=== PATIENT | male | born 1980 | race African-American/Black ===

== ENCOUNTER 2016-12-17 16:03 | Inpatient (IN) | payer OTHER ==
[~2016-12-17] VITALS: Ht 188 cm; Wt 59.9 kg
[2016-12-17] MEDS ORDERED: MORPHINE SULFATE 8 MG/ML INJ ONE (16:07)
[2016-12-17] MEDS ORDERED: ONDANSETRON HCL 4 MG/2 ML VIAL ONE (16:10)
[2016-12-17 16:20] VITALS: O2SAT 100
[2016-12-17] MEDS ORDERED: IOHEXOL 350 MG/ML 10 ML VIAL (for RAD DIAG) IV ONE (16:20)
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
[2016-12-17 16:30] LABS: AUTOMATED NEUTROPHIL # 7.2 TH/MM3 (1.8-7.7); BASOPHIL # 0.1 TH/MM3 (0-0.2); BASOPHIL % 0.8 % (0.0-2.0); EOSINOPHIL # 0.1 TH/MM3 (0-0.4); EOSINOPHIL % 0.6 % (0.0-4.0); HEMATOCRIT 41.9 % (39.0-51.0); HEMO FLAGS DIFF FINAL; LYMPH % 26.1 % (9.0-44.0); LYMPHOCYTE # 2.9 TH/MM3 (1.0-4.8); MEAN CORPUSCULAR HEMOGLOBIN 30.9 PG (27.0-34.0); MEAN CORPUSCULAR HGB CONC 33.6 % (32.0-36.0); NEUT % 64.5 % (16.0-70.0); PLATELET COUNT 232 TH/MM3 (150-450); RED BLOOD COUNT 4.55 MIL/MM3 (4.50-5.90); RED CELL DISTRIBUTION WIDTH 13.2 % (11.6-17.2); WHITE BLOOD COUNT 11.2 TH/MM3 (4.0-11.0)
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
[2016-12-17 16:35] LABS: I-STAT POTASSIUM 3.5 MMOL/L (3.5-4.9)
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
[2016-12-17 16:40] LABS: PROTHROMBIN TIME - PATIENT 10.7 SEC (9.8-11.6)
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
[2016-12-17] MEDS ORDERED: SODIUM CHLORIDE 0.9% FLUSH 5 ML FLUSH IVF PRN (17:00)
[2016-12-17] MEDS ORDERED: HYDROmorphone HCL PF 1 MG/ML VIAL IV PRN (17:00)
[2016-12-17] MEDS ORDERED: Post-op Orders (for Pharmacy) MISC XX ONE (17:00)
[2016-12-17] MEDS ORDERED: MORPHINE SULFATE 4 MG/ML INJ IV PRN (17:00)
[2016-12-17] MEDS ORDERED: ONDANSETRON HCL 4 MG/2 ML VIAL IV PRN (17:00)
[2016-12-17] MEDS ORDERED: NALOXONE HCL 0.4 MG/ML AMP IV PRN (17:00)
[2016-12-17] MEDS ORDERED: oxyCODONE/ACETAMINOPHEN 5 MG/325 MG TAB PO PRN (17:00)
[2016-12-17 17:46] VITALS: RESP 16; O2SAT 97
[2016-12-17 18:04] VITALS: BP 139/76; PULSE 68; RESP 18; O2SAT 100
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
[2016-12-17] MEDS: DOCUSATE SODIUM 100 MG CAP PO SCH (21:00)
[2016-12-17] MEDS ORDERED: SODIUM CHLORIDE 0.9% FLUSH 5 ML FLUSH IVF SCH (21:00)
[2016-12-17] MEDS: PANTOPRAZOLE SOD 40 MG DELAYED RELEASE TAB PO SCH (21:20)
[2016-12-18 00:30] VITALS: BP 134/64; PULSE 68; RESP 16; O2SAT 99
[2016-12-18 05:00] VITALS: BP 128/72; PULSE 62; RESP 16; O2SAT 98
[2016-12-18] MEDS ORDERED: ceFAZolin INJ 1,000 MG VIAL ONE (06:15)
[2016-12-18] MEDS ORDERED: VANCOMYCIN HCL 1000 MG VIAL ONE (06:15)
[2016-12-18] MEDS ORDERED: GENTAMICIN SULFATE 80 MG/2 ML VIAL ONE (06:15)
[2016-12-18] MEDS ORDERED: ACETAMINOPHEN 1000 MG/100 ML VIAL IV ONE (06:49)
[2016-12-18] MEDS ORDERED: FAMOTIDINE 20 MG/2 ML VIAL ONE (06:49)
[2016-12-18] MEDS ORDERED: MIDAZOLAM HCL 2 MG/2 ML VIAL ONE (06:49)
[2016-12-18] MEDS ORDERED: LACTATED RINGER'S 1000 ML INJ 1,000 ML IV SCH (07:53)
[2016-12-18] MEDS ORDERED: MORPHINE SULFATE 4 MG/ML INJ IV PUSH PRN (08:00)
[2016-12-18] MEDS ORDERED: SODIUM CHLORIDE 0.9% FLUSH 5 ML FLUSH IVF PRN (08:00)
[2016-12-18] MEDS ORDERED: diphenhydrAMINE HCL 25 MG CAP PO PRN (08:00)
[2016-12-18] MEDS ORDERED: Post-op Orders (for Pharmacy) MISC XX ONE (08:00)
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
[2016-12-18] MEDS ORDERED: fentaNYL CITRATE 250 MCG/5 ML AMP ONE (08:13)
[2016-12-18] MEDS ORDERED: *morphine SULFATE 8 MG/ML PERIprocedure ONLY ONE ×2 (08:15→08:20)
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
[2016-12-18] MEDS ORDERED: MORPHINE SULFATE 8 MG/ML INJ ONE (08:31)
[2016-12-18] MEDS ORDERED: *HYDROmorphone PF 1 MG VIAL PERIprocedural Use ONLY ONE ×2 (08:54→09:08)
[2016-12-18] MEDS: SODIUM CHLORIDE 0.9% FLUSH 5 ML FLUSH IVF SCH ×2 (09:00→23:38)
[2016-12-18] MEDS: DOCUSATE SODIUM 100 MG CAP PO SCH ×2 (09:00→21:00)
[2016-12-18] MEDS ORDERED: *PROMETHAZINE 25 MG/ML VIAL PERIprocedural use ONLY ONE (09:08)
[2016-12-18] MEDS ORDERED: *diphenhydrAMINE HCL 50 MG/ML VIAL PERIprocedural Use ONLY ONE ×2 (09:14→10:19)
[2016-12-18] MEDS ORDERED: LORazepam 2 MG/ML VIAL ONE (10:46)
[2016-12-18] MEDS ORDERED: LORazepam 2 MG/ML VIAL IV PRN (12:00)
[2016-12-18] MEDS ORDERED: PROPOFOL 200 MG/20 ML AMP IV ONE (12:00)
[2016-12-18] MEDS ORDERED: ONDANSETRON HCL 4 MG/2 ML VIAL IV PUSH ONE (12:00)
[2016-12-18] MEDS ORDERED: LORazepam 2 MG/ML VIAL IV ONE (12:00)
[2016-12-18] MEDS ORDERED: KETOROLAC TROMETHAMINE 60 MG/2 ML (IM) VIAL IM ONE (12:00)
[2016-12-18] MEDS ORDERED: LACTATED RINGER'S 1000 ML INJ 1,000 ML IV ONE (12:00)
--- NOTE | 2016-12-18 13:44 | RADRPT ---
EXAM DATE/TIME: 12/17/2016 16:24 [facility] COMPARISON: No previous studies available for comparison. INDICATIONS : Evalute right hip fracture ; Reconstructed from previous dataset MEDICAL HISTORY : Non-responsive. SURGICAL HISTORY : Non-responsive. ENCOUNTER: Initial ACUITY: 1 day PAIN SCALE: Non-responsive LOCATION: Right hip TECHNIQUE: 3D reconstructions of the right hip were performed. FINDINGS: 3-D images confirm a comminuted fracture of the posterior aspect of the acetabulum. No dislocation. CONCLUSION: 1. Acetabular fracture as above. Javier Bruno MD on December 18, 2016 at 13:41 Board Certified Radiologist. This report was verified electronically.
--- NOTE | 2016-12-18 13:56 | RADRPT ---
EXAM DATE/TIME: 12/17/2016 16:24 [facility] COMPARISON: No previous studies available for comparison. INDICATIONS : Evaluate fracture. RADIATION DOSE: CTDIvol (mGy) ; Reconstructed from previous dataset MEDICAL HISTORY : Unable to obtain SURGICAL HISTORY : Unable to obtain ENCOUNTER: Initial ACUITY: 1 day PAIN SCALE: Non-responsive LOCATION: Right Hip TECHNIQUE: Volumetric scanning of the hip was performed. Using automated exposure control and adjustment of the mA and/or kV according to patient size, radiation dose was kept as low as reasonably achievable to o btain optimal diagnostic quality images. FINDINGS: There is a comminuted mildly displaced fracture along the entire bony posterior lip of the acetabulum extending to the superior aspect of the femoral head. There is no associated dislocation. No fractur e of the proximal femur is identified. CONCLUSION: 1. Comminuted fracture through the posterior bony margin of the acetabulum as above. Javier Bruno MD on December 18, 2016 at 13:52 Board Certified Radiologist. This report was verified electronically.
--- NOTE | 2016-12-18 14:19 | RADRPT ---
EXAM DATE/TIME: 12/18/2016 13:54 [facility] COMPARISON: No previous studies available for comparison. INDICATIONS : Trauma; jumped out of second story window. RADIATION DOSE: 7.41 CTDIvol (mGy) MEDICAL HISTORY : None SURGICAL HISTORY : None. ENCOUNTER: Initial ACUITY: 1 day PAIN SCALE: Non-responsive LOCATION: Left ankle TECHNIQUE: Volumetric scanning of the ankle was performed. Using automated exposure control and adjustment of t he mA and/or kV according to patient size, radiation dose was kept as low as reasonably achievable to obtain optimal diagnostic quality images. FINDINGS: There is a comminuted fracture of the tibial plafond with some fracture fragments at the articular calderon rface displaced cephalad by about 7 mm. Fracture extends both medially and laterally through the plaf ond and into the posterior aspect of the medial malleolus. There is also a small avulsion fracture of the lateral malleolus and small avulsion fractures of the posterior talus. External fixation is pres ent with fixation screw traversing the posterior calcaneus. Midfoot appears intact. CONCLUSION: 1. Comminuted fracture tibial plafond as above with avulsion fractures of the posterior talus and lat eral malleolus as well. Javier Bruno MD on December 18, 2016 at 14:13 Board Certified Radiologist. This report was verified electronically.
--- NOTE | 2016-12-18 14:25 | RADRPT ---
EXAM DATE/TIME: 12/18/2016 07:49 [facility] COMPARISON: ANKLE LEFT LIMITED (AP&LAT), December 17, 2016, 0:00. INDICATIONS : external fixator left ankle. MEDICAL HISTORY : None. SURGICAL HISTORY : None. ENCOUNTER: Subsequent ACUITY: 2 days PAIN SCORE: Non-responsive. LOCATION: Left ankle FINDINGS: Two view exam was performed of the left ankle. There is external fixation of a comminuted fracture of the distal tibia. Small avulsion fracture noted at the lateral malleolus and posterior talus. Improv ement in alignment compared with preoperative film. CONCLUSION: 1. External fixation across comminuted distal tibial fracture. Javier Bruno MD on December 18, 2016 at 14:21 Board Certified Radiologist. This report was verified electronically.
[2016-12-18 16:00] VITALS: BP 116/74; PULSE 58; RESP 18; TEMP 96.6; O2SAT 99
--- NOTE | 2016-12-18 17:07 | HHI.PR ---
Subjective Subjective Notes S/P Left ankle closed reduction and application of external fixator Ambulated with PT today Complains of left ankle pain Objective Vitals/I&O Vital Signs Date Time Temp Pulse Resp B/P Pulse Ox O2 Delivery O2 Flow Rate FiO2 12/18/16 13:20 97.6 62 15 137/84 94 Room Air 12/18/16 10:15 3 Labs Laboratory Tests Test 12/17/16 16:10 White Blood Count 11.2 TH/MM3 Red Blood Count 4.55 MIL/MM3 Hemoglobin 14.1 GM/DL Bedside Hemoglobin 15.0 G/DL Hematocrit 41.9 % Bedside Hematocrit 44.0 % Mean Corpuscular Volume 92.0 FL Mean Corpuscular Hemoglobin 30.9 PG Mean Corpuscular Hemoglobin 33.6 % Concent Red Cell Distribution Width 13.2 % Platelet Count 232 TH/MM3 Mean Platelet Volume 9.5 FL Neutrophils (%) (Auto) 64.5 % Lymphocytes (%) (Auto) 26.1 % Monocytes (%) (Auto) 8.0 % Eosinophils (%) (Auto) 0.6 % Basophils (%) (Auto) 0.8 % Neutrophils # (Auto) 7.2 TH/MM3 Lymphocytes # (Auto) 2.9 TH/MM3 Monocytes # (Auto) 0.9 TH/MM3 Eosinophils # (Auto) 0.1 TH/MM3 Basophils # (Auto) 0.1 TH/MM3 CBC Comment DIFF FINAL Differential Comment Prothrombin Time 10.7 SEC Prothromb Time International 1.0 RATIO Ratio Activated Partial 22.0 SEC Thromboplast Time Bedside Sodium 143 MMOL/L Bedside Potassium 3.5 MMOL/L Bedside Chloride 106 MMOL/L Bedside Blood Urea Nitrogen 17 MG/DL Bedside Creatinine 1.6 MG/DL Bedside Glucose 120 MG/DL Blood Type A POSITIVE Antibody Screen NEGATIVE Radiology Last Impressions Multiplanar Reconstruction 12/18/16 1259 Signed Impressions: Service Date/Time: Saturday, December 17, 2016 16:24 - CONCLUSION: 1. Acetabular fracture as above. Javier Bruno MD Lower Extremity CT 12/18/16 1259 Signed Impressions: Service Date/Time: Saturday, December 17, 2016 16:24 - CONCLUSION: 1. Comminuted fracture through the posterior bony margin of the acetabulum as above. Javier Bruno MD Ankle X-Ray 12/18/16 0000 Signed Impressions: Service Date/Time: December 07:49 - CONCLUSION: 1. External fixation across comminuted distal tibial fracture. Javier Bruno MD Pelvis X-Ray 12/17/16 1605 Signed Impressions: Service Date/Time: Saturday, December 17, 2016 15:57 - CONCLUSION: Mildly comminuted fracture of the right acetabulum. Jonah Pang MD Head CT 12/17/16 160 Signed Impressions: Service Date/Time: Saturday, December 17, 2016 16:18 - CONCLUSION: 1. Negative trauma CT with no evidence of fracture or hemorrhage. 2. Mild mucosal thickening in the ethmoidal air cells. Jonah Pang MD Chest X-Ray 12/17/16 160 Signed Impressions: Service Date/Time: Saturday, December 17, 2016 15:57 - CONCLUSION: Suboptimal single view exam with the left-side of the chest wall and costophrenic angle cut off the study. There is no acute cardiopulmonary disease.. Jonah Pang MD Chest CT 12/17/16 160 Signed Impressions: Service Date/Time: Saturday, December 17, 2016 16:24 - CONCLUSION: Negative trauma CT Jonah Pang MD Cervical Spine CT 12/17/16 160 Signed Impressions: Service Date/Time: Saturday, December 17, 2016 16:18 - CONCLUSION: Negative trauma CT. Jonah Pang MD Abdomen/Pelvis CT 12/17/161604 Signed Impressions: Service Date/Time: Saturday, December 17, 2016 16:24 - CONCLUSION: 1. Mildly comminuted fracture deformity of the right acetabulum. 2. Subtle nondisplaced fractures involving the second third and fourth left lateral transverse processes. 3. No evidence of visceral injury. Jonah Pang MD Narrative Exam GENERAL: 36 year old well-nourished, well developed male lying in bed. SKIN: Warm and dry. HEAD: Normocephalic. ENT: No nasal bleeding or discharge. Mucous membranes pink and moist. NECK: Trachea midline. No JVD. CARDIOVASCULAR: Regular rate and rhythm. RESPIRATORY: No accessory muscle use. Lungs clear to auscultation. Breath sounds equal bilaterally. GASTROINTESTINAL: Abdomen soft, non-tender, nondistended. + BS. MUSCULOSKELETAL: Extremities without cyanosis, or edema. LEFT ankle ex-fix in place. NEUROLOGICAL: Awake and alert. Normal speech. A/P Assessment and Plan [place]: Jumped out of a second story building window running from police. Initial complaints of back pain, abdominal pain and left ankle pain with deformity. No LOC. INJURIES: LEFT distal tibial fx with avulsion fracture of posterior talus and lateral malleolus RIGHT posterior acetabulum fx L2, L3, L4 transverse process fx 12/17: Left ankle closed reduction and application of external fixator Diet: Regular Pulmonary: IS, encouraged patient use. Pain: [place], Toradol, Morphine. Activity: OOB, PT evaluated and ambulated patient in [place]. (NWB LLE) GI: Protonix PO Bowel: Colace. DVT: SCDs Case management consulted to assist with discharge planning. Patient will need to discharge to snf when cleared by Ortho. Plan of care discussed with patient at bedside. Jus Zheng Dec 18, 2016 17:07
[2016-12-18] MEDS: PANTOPRAZOLE SOD 40 MG DELAYED RELEASE TAB PO SCH (17:28)
[2016-12-18] MEDS: KETOROLAC TROMETHAMINE 30 MG/ML (IVP) VIAL IVP SCH ×2 (17:28→22:00)
[2016-12-18] MEDS: ACETAMINOPHEN/HYDROcodone 325 MG/7.5 MG TAB PO PRN (17:29)
[2016-12-18 20:00] VITALS: BP 117/69; PULSE 71; RESP 16; TEMP 98.5; O2SAT 97
[2016-12-18] MEDS: MAGNESIUM HYDROXIDE SUSP 30 ML CUP PO SCH (21:00)
[2016-12-19] VITALS: BP 114/66; PULSE 82; RESP 16; TEMP 98.6; O2SAT 97
[2016-12-19 05:45] LABS: AUTOMATED NEUTROPHIL # 6.7 TH/MM3 (1.8-7.7); BASOPHIL # 0.1 TH/MM3 (0-0.2); BASOPHIL % 0.6 % (0.0-2.0); EOSINOPHIL # 0.1 TH/MM3 (0-0.4); EOSINOPHIL % 0.6 % (0.0-4.0); HEMATOCRIT 35.3 % (39.0-51.0); HEMO FLAGS DIFF FINAL; LYMPH % 29.1 % (9.0-44.0); LYMPHOCYTE # 3.3 TH/MM3 (1.0-4.8); MEAN CELL VOLUME 92.4 FL (80.0-100.0); MEAN CORPUSCULAR HEMOGLOBIN 30.5 PG (27.0-34.0); MEAN CORPUSCULAR HGB CONC 33.1 % (32.0-36.0); MONO % 10.9 % (0.0-8.0); NEUT % 58.8 % (16.0-70.0); PLATELET COUNT 189 TH/MM3 (150-450); RED BLOOD COUNT 3.83 MIL/MM3 (4.50-5.90); WHITE BLOOD COUNT 11.3 TH/MM3 (4.0-11.0)
[2016-12-19 06:03] LABS: ALT (GPT) 17 U/L (12-78); ANION GAP 6 MEQ/L (5-15); AST (GOT) 22 U/L (15-37); BICARBONATE 28.5 MEQ/L (21.0-32.0); BLOOD UREA NITROGEN 13 MG/DL (7-18); CHLORIDE 108 MEQ/L (98-107); GLOMERULAR FILTRATION RATE 61 ML/MIN (>89); MAGNESIUM 2.2 MG/DL (1.5-2.5); POTASSIUM 3.8 MEQ/L (3.5-5.1); SODIUM (NA) 142 MEQ/L (136-145)
[2016-12-19 06:05] LABS: ALKALINE PHOSPHATASE 51 U/L (45-117); TOTAL BILIRUBIN ADULT 0.4 MG/DL (0.2-1.0)
[2016-12-19] MEDS: KETOROLAC TROMETHAMINE 30 MG/ML (IVP) VIAL IVP SCH ×3 (06:23→21:54)
[2016-12-19] MEDS: ACETAMINOPHEN/HYDROcodone 325 MG/7.5 MG TAB PO PRN ×3 (06:24→22:00)
--- NOTE | 2016-12-19 06:31 | PD.ORT.PN ---
Subjective Subjective Remarks Pain controlled, examined in bed. guards bedside Objective Vitals Vital Signs Date Time Temp Pulse Resp B/P Pulse Ox O2 Delivery O2 Flow Rate FiO2 12/19/16 00:00 98.6 82 16 114/66 97 12/18/16 20:00 98.5 71 16 117/69 97 12/18/16 19:07 Room Air 12/18/16 16:00 96.6 58 18 116/74 99 12/18/16 13:20 97.6 62 15 137/84 94 Room Air 12/18/16 12:45 63 15 134/60 94 Room Air 12/18/16 11:45 63 15 135/81 94 Room Air 12/18/16 11:15 60 15 139/78 94 Room Air 12/18/16 10:45 60 15 135/82 94 Room Air 12/18/16 10:15 57 17 135/82 98 Nasal Cannula 3 12/18/16 09:45 57 17 135/81 98 Nasal Cannula 3 12/18/16 09:15 76 16 144/86 98 Nasal Cannula 3 12/18/16 09:00 66 15 150/85 98 Nasal Cannula 3 12/18/16 08:45 74 15 147/92 98 Nasal Cannula 3 12/18/16 08:30 61 17 147/93 98 Nasal Cannula 3 12/18/16 08:15 81 14 154/91 98 Nasal Cannula 3 12/18/16 08:07 97.9 102 14 150/82 97 Nasal Cannula 3 I/O 12/18/16 12/18/16 12/18/16 12/19/16 12/19/16 12/19/16 07:00 15:00 23:00 07:00 15:00 23:00 Intake Total 925 ml Output Total 80 ml Balance 845 ml Intake IV Total 825 ml Other 100 ml Output Urine Total 0 ml Estimated Blood Loss 80 ml Result Diagram: 12/19/1651112/19/16 05 Imaging Last 24 hours Impressions Multiplanar Reconstruction 12/18/16 1259 Signed Impressions: Service Date/Time: Saturday, December 17, 2016 16:24 - CONCLUSION: 1. Acetabular fracture as above. Javier Bruno MD Lower Extremity CT 12/18/16 1259 Signed Impressions: Service Date/Time: Saturday, December 17, 2016 16:24 - CONCLUSION: 1. Comminuted fracture through the posterior bony margin of the acetabulum as above. Javier Bruno MD Objective Remarks Left lower extremity: No pain with hip or knee range of motion. External fixator in place over ankle. Swelling of +3. Intact sensation distally and is able to move toes. Right lower extremity: Pain with range of motion of hip. No pain with knee or ankle range of motion. Distally intact sensation with strong dorsiflexion plantar flexion of foot Assessment & Plan Assessment and Plan Left tibial Pilon fracture status post external fixation POD 1 Right posterior column acetabular fracture nonoperative Right lower extremity toe-touch weightbearing with 90 rule Left lower extremity nonweightbearing elevation to decrease swelling Pin care twice a day We'll plan on surgery next week for tibial pilon fracture when swelling has improved Lovenox Pain control CRISTINA HASSAN PA-C Dec 19, 2016 06:31
[2016-12-19 08:00] VITALS: BP 124/63; PULSE 73; RESP 18; TEMP 97.7; O2SAT 100
[2016-12-19 08:55] VITALS: O2SAT 98
[2016-12-19] MEDS: SODIUM CHLORIDE 0.9% FLUSH 5 ML FLUSH IVF SCH ×2 (09:52→21:52)
[2016-12-19] MEDS: ENOXAPARIN SODIUM 40 MG/0.4 ML SYRINGE SQ SCH (09:52)
[2016-12-19] MEDS: DOCUSATE SODIUM 100 MG CAP PO SCH ×2 (09:52→21:00)
[2016-12-19] MEDS: LACTULOSE SYRUP 20 GM/30 ML CUP PO SCH (09:52)
--- NOTE | 2016-12-19 11:45 | HHI.PR ---
Subjective Subjective Notes PTD: 2 Patient sitting in bed with 2 guards at bedside. Patient states, "I'm gonna be here for weeks." Patient states that he hasn't been using much pain medication. Objective Vitals/I&O Vital Signs Date Time Temp Pulse Resp B/P Pulse Ox O2 Delivery O2 Flow Rate FiO2 12/19/16 08:55 98 21 12/19/16 08:00 97.7 73 18 124/63 12/18/16 19:07 Room Air 12/18/16 10:15 3 Labs Laboratory Tests Test 12/19/16 05:12 White Blood Count 11.3 Red Blood Count 3.83 Hemoglobin 11.7 Hematocrit 35.3 Mean Corpuscular Volume 92.4 Mean Corpuscular Hemoglobin 30.5 Mean Corpuscular Hemoglobin 33.1 Concent Red Cell Distribution Width 13.0 Platelet Count 189 Mean Platelet Volume 9.5 Neutrophils (%) (Auto) 58.8 Lymphocytes (%) (Auto) 29.1 Monocytes (%) (Auto) 10.9 Eosinophils (%) (Auto) 0.6 Basophils (%) (Auto) 0.6 Neutrophils # (Auto) 6.7 Lymphocytes # (Auto) 3.3 Monocytes # (Auto) 1.2 Eosinophils # (Auto) 0.1 Basophils # (Auto) 0.1 CBC Comment DIFF FINAL Differential Comment Sodium Level 142 Potassium Level 3.8 Chloride Level 108 Carbon Dioxide Level 28.5 Anion Gap 6 Blood Urea Nitrogen 13 Creatinine 1.24 Estimat Glomerular Filtration 61 Rate Random Glucose 85 Calcium Level 8.4 Magnesium Level 2.2 Total Bilirubin 0.4 Aspartate Amino Transf 22 (AST/SGOT) Alanine Aminotransferase 17 (ALT/SGPT) Alkaline Phosphatase 51 Total Protein 5.9 Albumin 3.0 Radiology Last Impressions Multiplanar Reconstruction 12/18/169 Signed Impressions: Service Date/Time: Saturday, December 17, 2016 16:24 - CONCLUSION: 1. Acetabular fracture as above. Javier Bruno MD Lower Extremity CT 12/18/16 1259 Signed Impressions: Service Date/Time: Saturday, December 17, 2016 16:24 - CONCLUSION: 1. Comminuted fracture through the posterior bony margin of the acetabulum as above. Javier Bruno MD Ankle X-Ray 12/18/16 0000 Signed Impressions: Service Date/Time: December 07:49 - CONCLUSION: 1. External fixation across comminuted distal tibial fracture. Javier Bruno MD Pelvis X-Ray 12/17/16 1605 Signed Impressions: Service Date/Time: Saturday, December 17, 2016 15:57 - CONCLUSION: Mildly comminuted fracture of the right acetabulum. Jonah Pang MD Head CT 12/17/16 1605 Signed Impressions: Service Date/Time: Saturday, December 17, 2016 16:18 - CONCLUSION: 1. Negative trauma CT with no evidence of fracture or hemorrhage. 2. Mild mucosal thickening in the ethmoidal air cells. Jonah Pang MD Chest X-Ray 12/17/16 1605 Signed Impressions: Service Date/Time: Saturday, December 17, 2016 15:57 - CONCLUSION: Suboptimal single view exam with the left-side of the chest wall and costophrenic angle cut off the study. There is no acute cardiopulmonary disease.. Jonah Pang MD Chest CT 12/17/16 1605 Signed Impressions: Service Date/Time: Saturday, December 17, 2016 16:24 - CONCLUSION: Negative trauma CT Jonah Pang MD Cervical Spine CT 12/17/16 1605 Signed Impressions: Service Date/Time: Saturday, December 17, 2016 16:18 - CONCLUSION: Negative trauma CT. Jonah Pang MD Abdomen/Pelvis CT 12/17/16 1605 Signed Impressions: Service Date/Time: Saturday, December 17, 2016 16:24 - CONCLUSION: 1. Mildly comminuted fracture deformity of the right acetabulum. 2. Subtle nondisplaced fractures involving the second third and fourth left lateral transverse processes. 3. No evidence of visceral injury. Jonah Pang MD Narrative Exam GENERAL: This is a young AA gentleman who is well developed, and well nourished and in no distress. SKIN: Warm and dry. HEAD: Atraumatic. Normocephalic. EYES: PERRLA ENT: No nasal bleeding or discharge. Mucous membranes pink and moist. NECK: Trachea midline. No JVD. CARDIOVASCULAR: Regular rate and rhythm. RESPIRATORY: No accessory muscle use. Lungs are clear to auscultation. Breath sounds equal bilaterally. No distress or dyspnea. GASTROINTESTINAL: BS + x 4 quads. Abdomen soft, non-tender, nondistended. MUSCULOSKELETAL: Extremities without cyanosis, or edema. LEFT lower extremity ex-fix in place (elevated leg on pillows ) + peripheral pulses x 4 extremities. Warm with good capillary refill and sensation. MAEW. NEUROLOGICAL: Awake and alert. Normal speech and pattern. A/P Problem List: (1) Ankle fracture Assessment and Plan [place]: This is a 36-year-old AA male who jumped out of a second story building window while running from the police. His initial complaints were of back pain , abdominal pain, and left ankle pain with some deformity. No LOC. INJURIES: LEFT distal tibial fracture with avulsion fracture of the posterior talus and lateral malleolus Right posterior acetabulum fracture L2, L3, L4 transverse process fractures Procedures: 12/17: Left ankle closed reduction and application of ex-fix. Consults: Orthopedics. Orthopedics plan for further surgery early next week. TBD. Diet: Regular diet. Tolerating po diet. Encourage good po intake with each meal. Pulmonary: Encourage good pulmonary toileting. IS at bedside and pt encouraged to use. Rationale for use explained to patient, and verbalized understanding. PAIN Management: [place], Toradol, morphine IV PRN for breakthrough. Activity: OOB. PT and OT ordered. (NWB LLE; TTWB RLE) GI prophylaxis: Protonix by mouth Bowel regimen: Colace and MOM. Added lactulose daily. Discussed the importance of good bowel regimen while taking narcotic pain medications. Patient verbalized understanding. DVT prophylaxis: Mechanical VTE with SCDs. Chemical management with Lovenox 40 QD. DC Planning: Case management consulted for assistance with final discharge disposition. Patient will discharge to shelter. Emotional support provided to patient at bedside and plan of care discussed. Discussed with RN at bedside Patient is hemodynamically stable and being managed on the med/surg floor. Problem Qualifiers (1) Ankle fracture: Qualified Code: S82.892A - Ankle fracture, left, closed, initial encounter Jennifer Armas Dec 19, 2016 11:45
[2016-12-19 12:00] VITALS: BP 135/68; PULSE 59; RESP 18; TEMP 98.1; O2SAT 95
[2016-12-19 16:00] VITALS: BP 114/59; PULSE 68; RESP 18; TEMP 98.9; O2SAT 98
[2016-12-19] MEDS: PANTOPRAZOLE SOD 40 MG DELAYED RELEASE TAB PO SCH ×2 (17:00→18:32)
[2016-12-19 20:29] VITALS: BP 127/72; PULSE 66; RESP 22; TEMP 98.6; O2SAT 99
[2016-12-19] MEDS: MAGNESIUM HYDROXIDE SUSP 30 ML CUP PO SCH (21:00)
[2016-12-20 00:23] VITALS: BP 107/61; PULSE 59; RESP 22; TEMP 98.3; O2SAT 97
[2016-12-20] MEDS: KETOROLAC TROMETHAMINE 30 MG/ML (IVP) VIAL IVP SCH (06:10)
[2016-12-20] MEDS: ACETAMINOPHEN/HYDROcodone 325 MG/7.5 MG TAB PO PRN ×6 (06:10→22:26)
[2016-12-20 07:25] VITALS: BP 123/73; PULSE 55; RESP 16; TEMP 97.5; O2SAT 100
--- NOTE | 2016-12-20 07:43 | PD.ORT.PN ---
Subjective Subjective Remarks pain in L ankle and R hip but tolerable. has been elevating and icing ankle. Objective Vitals Vital Signs Date Time Temp Pulse Resp B/P Pulse Ox O2 Delivery O2 Flow Rate FiO2 12/20/16 00:23 98.3 59 22 107/61 97 12/19/16 20:29 98.6 66 22 127/72 99 12/19/16 18:57 Room Air 12/19/16 16:00 98.9 68 18 114/59 98 12/19/16 12:00 98.1 59 18 135/68 95 12/19/16 08:55 98 21 12/19/16 08:00 97.7 73 18 124/63 100 I/O 12/19/16 12/19/16 12/19/16 12/20/16 12/20/16 12/20/16 07:00 15:00 23:00 07:00 15:00 23:00 Intake Total 240 ml 360 ml 360 ml Output Total 440 ml 440 ml 450 ml Balance -200 ml -80 ml -90 ml Intake Oral 240 ml 360 ml 360 ml Output Urine Total 440 ml 440 ml 450 ml # Bowel Movements 0 0 0 Result Diagram: 12/19/16 0512 12/19/16 0512 Imaging Last 24 hours Impressions Multiplanar Reconstruction 12/18/16 1259 Signed Impressions: Service Date/Time: Saturday, December 17, 2016 16:24 - CONCLUSION: 1. Acetabular fracture as above. Javier Bruno MD Lower Extremity CT 12/18/16 1259 Signed Impressions: Service Date/Time: Saturday, December 17, 2016 16:24 - CONCLUSION: 1. Comminuted fracture through the posterior bony margin of the acetabulum as above. Javier Bruno MD Objective Remarks Left lower extremity: No pain with hip or knee range of motion. External fixator in place over ankle. Swelling of +3. Intact sensation distally and is able to move toes. Right lower extremity: Pain with range of motion of hip. No pain with knee or ankle range of motion. Distally intact sensation with strong dorsiflexion plantar flexion of foot Assessment & Plan Assessment and Plan Left tibial Pilon fracture status post external fixation POD 2 Right posterior column acetabular fracture nonoperative Right lower extremity toe-touch weightbearing with 90 rule Left lower extremity nonweightbearing elevation to decrease swelling, Ice Pin care twice a day plan on surgery next week for tibial pilon fracture when swelling has improved - Dr. Dajuan Kirkpatrick Pain control Efra Arellano Dec 20, 2016 07:43
[2016-12-20] MEDS: ENOXAPARIN SODIUM 40 MG/0.4 ML SYRINGE SQ SCH (08:53)
[2016-12-20] MEDS: SODIUM CHLORIDE 0.9% FLUSH 5 ML FLUSH IVF SCH ×2 (08:53→20:48)
[2016-12-20] MEDS: DOCUSATE SODIUM 100 MG CAP PO SCH ×2 (08:54→20:45)
[2016-12-20] MEDS: LACTULOSE SYRUP 20 GM/30 ML CUP PO SCH (08:54)
--- NOTE | 2016-12-20 11:33 | HHI.PR ---
Subjective Subjective Notes PTD: 3 Patient is asleep, however assess easily. 2 guards at bedside. Patient is requesting family to be called to let them know his status. No complaints offered at this time. Objective Vitals/I&O Vital Signs Date Time Temp Pulse Resp B/P Pulse Ox O2 Delivery O2 Flow Rate FiO2 12/20/16 07:25 97.5 55 16 123/73 100 12/19/16 18:57 Room Air 12/19/16 08:55 21 12/18/16 10:15 3 Labs Laboratory Tests Test 12/17/16 12/19/16 16:10 05:12 Bedside Hemoglobin 15.0 G/DL Bedside Hematocrit 44.0 % Prothrombin Time 10.7 SEC Prothromb Time International 1.0 RATIO Ratio Activated Partial 22.0 SEC Thromboplast Time Bedside Sodium 143 MMOL/L Bedside Potassium 3.5 MMOL/L Bedside Chloride 106 MMOL/L Bedside Blood Urea Nitrogen 17 MG/DL Bedside Creatinine 1.6 MG/DL Bedside Glucose 120 MG/DL Blood Type A POSITIVE Antibody Screen NEGATIVE White Blood Count 11.3 TH/MM3 Red Blood Count 3.83 MIL/MM3 Hemoglobin 11.7 GM/DL Hematocrit 35.3 % Mean Corpuscular Volume 92.4 FL Mean Corpuscular Hemoglobin 30.5 PG Mean Corpuscular Hemoglobin 33.1 % Concent Red Cell Distribution Width 13.0 % Platelet Count 189 TH/MM3 Mean Platelet Volume 9.5 FL Neutrophils (%) (Auto) 58.8 % Lymphocytes (%) (Auto) 29.1 % Monocytes (%) (Auto) 10.9 % Eosinophils (%) (Auto) 0.6 % Basophils (%) (Auto) 0.6 % Neutrophils # (Auto) 6.7 TH/MM3 Lymphocytes # (Auto) 3.3 TH/MM3 Monocytes # (Auto) 1.2 TH/MM3 Eosinophils # (Auto) 0.1 TH/MM3 Basophils # (Auto) 0.1 TH/MM3 CBC Comment DIFF FINAL Differential Comment Sodium Level 142 MEQ/L Potassium Level 3.8 MEQ/L Chloride Level 108 MEQ/L Carbon Dioxide Level 28.5 MEQ/L Anion Gap 6 MEQ/L Blood Urea Nitrogen 13 MG/DL Creatinine 1.24 MG/DL Estimat Glomerular Filtration 61 ML/MIN Rate Random Glucose 85 MG/DL Calcium Level 8.4 MG/DL Magnesium Level 2.2 MG/DL Total Bilirubin 0.4 MG/DL Aspartate Amino Transf 22 U/L (AST/SGOT) Alanine Aminotransferase 17 U/L (ALT/SGPT) Alkaline Phosphatase 51 U/L Total Protein 5.9 GM/DL Albumin 3.0 GM/DL Radiology Last Impressions Multiplanar Reconstruction 12/18/16 1259 Signed Impressions: Service Date/Time: Saturday, December 17, 2016 16:24 - CONCLUSION: 1. Acetabular fracture as above. Javier Bruno MD Lower Extremity CT 12/18/16 1259 Signed Impressions: Service Date/Time: Saturday, December 17, 2016 16:24 - CONCLUSION: 1. Comminuted fracture through the posterior bony margin of the acetabulum as above. Javier Bruno MD Ankle X-Ray 12/18/16 0000 Signed Impressions: Service Date/Time: December 07:49 - CONCLUSION: 1. External fixation across comminuted distal tibial fracture. Javier Bruno MD Pelvis X-Ray 12/17/16 1605 Signed Impressions: Service Date/Time: Saturday, December 17, 2016 15:57 - CONCLUSION: Mildly comminuted fracture of the right acetabulum. Jonah Pang MD Head CT 12/17/16 1605 Signed Impressions: Service Date/Time: Saturday, December 17, 2016 16:18 - CONCLUSION: 1. Negative trauma CT with no evidence of fracture or hemorrhage. 2. Mild mucosal thickening in the ethmoidal air cells. Jonah Pang MD Chest X-Ray 12/17/16 1605 Signed Impressions: Service Date/Time: Saturday, December 17, 2016 15:57 - CONCLUSION: Suboptimal single view exam with the left-side of the chest wall and costophrenic angle cut off the study. There is no acute cardiopulmonary disease.. Jonah Pang MD Chest CT 12/17/16 1605 Signed Impressions: Service Date/Time: Saturday, December 17, 2016 16:24 - CONCLUSION: Negative trauma CT Jonah Pang MD Cervical Spine CT 12/17/16 1605 Signed Impressions: Service Date/Time: Saturday, December 17, 2016 16:18 - CONCLUSION: Negative trauma CT. Jonah Pang MD Abdomen/Pelvis CT 12/17/16 1605 Signed Impressions: Service Date/Time: Saturday, December 17, 2016 16:24 - CONCLUSION: 1. Mildly comminuted fracture deformity of the right acetabulum. 2. Subtle nondisplaced fractures involving the second third and fourth left lateral transverse processes. 3. No evidence of visceral injury. Jonah Pang MD Narrative Exam GENERAL: This is a young AA gentleman who is well developed, and well nourished and in no distress. SKIN: Warm and dry. HEAD: Atraumatic. Normocephalic. EYES: PERRLA ENT: No nasal bleeding or discharge. Mucous membranes pink and moist. NECK: Trachea midline. No JVD. CARDIOVASCULAR: Regular rate and rhythm. RESPIRATORY: No accessory muscle use. Lungs are clear to auscultation. Breath sounds equal bilaterally. No distress or dyspnea. GASTROINTESTINAL: BS + x 4 quads. Abdomen soft, non-tender, nondistended. MUSCULOSKELETAL: Extremities without cyanosis, or edema. LEFT lower extremity ex-fix in place (elevated leg on pillows ) + peripheral pulses x 4 extremities. Warm with good capillary refill and sensation. MAEW. NEUROLOGICAL: Awake and alert. Normal speech and pattern. A/P Problem List: (1) Ankle fracture Assessment and Plan [place]: This is a 36-year-old AA male who jumped out of a second story building window while running from the police. His initial complaints were of back pain , abdominal pain, and left ankle pain with some deformity. No LOC. INJURIES: LEFT distal tibial fracture with avulsion fracture of the posterior talus and lateral malleolus Right posterior acetabulum fracture L2, L3, L4 transverse process fractures Procedures: 12/17: Left ankle closed reduction and application of ex-fix. Consults: Orthopedics. Orthopedics plan for further surgery and ex-fix removal early next week. TBD. Diet: Regular diet. Tolerating po diet. Encourage good po intake with each meal. Pulmonary: Encourage good pulmonary toileting. IS at bedside and pt encouraged to use. Rationale for use explained to patient, and verbalized understanding. PAIN Management: [place], Toradol, morphine IV PRN for breakthrough. Activity: OOB. PT and OT ordered. (NWB LLE; TTWB RLE) GI prophylaxis: Protonix po. Bowel regimen: Colace and MOM. Lactulose daily. Discussed the importance of good bowel regimen while taking narcotic pain medications. Patient verbalized understanding and agrees to take. DVT prophylaxis: Mechanical VTE with SCDs. Chemical management with Lovenox 40 QD. DC Planning: Case management consulted for assistance with final discharge disposition. Patient will discharge to intermediate. Emotional support provided to patient at bedside and plan of care discussed. Discussed with RN at bedside Patient is hemodynamically stable and being managed on the med/surg floor. Attending Statement The exam, history, and the medical decision-making described in the above note were completed with the assistance of the mid-level provider. I reviewed and agree with the findings presented. I attest that I had a [id number] encounter with the patient on the same day, and personally performed and documented my assessment and findings in the medical record. Problem Qualifiers (1) Ankle fracture: Qualified Code: S82.892A - Ankle fracture, left, closed, initial encounter Jennifer Armas Dec 20, 2016 11:32 Aldo Brandon MD Dec 27, 2016 16:16
[2016-12-20 12:36] VITALS: BP 120/74; PULSE 56; RESP 16; TEMP 98.2; O2SAT 98
[2016-12-20 17:00] VITALS: BP 123/70; PULSE 74; RESP 16; TEMP 98; O2SAT 99
[2016-12-20] MEDS: PANTOPRAZOLE SOD 40 MG DELAYED RELEASE TAB PO SCH (17:29)
[2016-12-20 20:30] VITALS: BP 142/79; PULSE 72; RESP 16; TEMP 97.5; O2SAT 100
[2016-12-20] MEDS: MAGNESIUM HYDROXIDE SUSP 30 ML CUP PO SCH (20:45)
[2016-12-21 00:25] VITALS: BP 133/80; PULSE 57; RESP 16; TEMP 97.8; O2SAT 100
[2016-12-21] MEDS: ACETAMINOPHEN/HYDROcodone 325 MG/7.5 MG TAB PO PRN ×5 (05:59→21:31)
--- NOTE | 2016-12-21 07:55 | PD.ORT.PN ---
Subjective Subjective Remarks pain in L ankle and R hip but tolerable. has been elevating and icing ankle. Objective Vitals Vital Signs Date Time Temp Pulse Resp B/P Pulse Ox O2 Delivery O2 Flow Rate FiO2 12/21/16 00:25 97.8 57 16 133/80 100 12/20/16 20:30 97.5 72 16 142/79 100 12/20/16 17:00 98.0 74 16 123/70 99 12/20/16 12:36 98.2 56 16 120/74 98 I/O 12/20/16 12/20/16 12/20/16 12/21/16 12/21/16 12/21/16 07:00 15:00 23:00 07:00 15:00 23:00 Intake Total 360 ml 960 ml 240 ml 240 ml Output Total 450 ml 300 ml 350 ml Balance -90 ml 660 ml 240 ml -110 ml Intake Oral 360 ml 960 ml 240 ml 240 ml Output Urine Total 450 ml 300 ml 350 ml # Voids 1 # Bowel Movements 0 0 0 Result Diagram: 12/19/16 0512 12/19/16 0512 Imaging Last 24 hours Impressions Multiplanar Reconstruction 12/18/16 1259 Signed Impressions: Service Date/Time: Saturday, December 17, 2016 16:24 - CONCLUSION: 1. Acetabular fracture as above. Javier Bruno MD Lower Extremity CT 12/18/16 1259 Signed Impressions: Service Date/Time: Saturday, December 17, 2016 16:24 - CONCLUSION: 1. Comminuted fracture through the posterior bony margin of the acetabulum as above. Javier Bruno MD Objective Remarks Left lower extremity: No pain with hip or knee range of motion. External fixator in place over ankle. Swelling of +3. Intact sensation distally and is able to move toes. Right lower extremity: Pain with range of motion of hip. No pain with knee or ankle range of motion. Distally intact sensation with strong dorsiflexion plantar flexion of foot Assessment & Plan Assessment and Plan Left tibial Pilon fracture status post external fixation POD 3 Right posterior column acetabular fracture nonoperative Right lower extremity toe-touch weightbearing with 90 rule Left lower extremity nonweightbearing elevation to decrease swelling, Ice - swelling slowly improving Pin care twice a day plan on surgery next week for tibial pilon fracture when swelling has improved - Dr. Dajuan Kirkpatrick Pain control Efra Arellano Dec 21, 2016 07:55
[2016-12-21] MEDS ORDERED: MAGNESIUM CITRATE SOLN 300 ML BTL PO ONE (08:00)
[2016-12-21 08:07] VITALS: BP 125/72; PULSE 58; RESP 16; TEMP 97; O2SAT 99
[2016-12-21] MEDS: LACTULOSE SYRUP 20 GM/30 ML CUP PO SCH (09:00)
[2016-12-21] MEDS: DOCUSATE SODIUM 50 MG/SENNA 8.6 MG TAB PO SCH ×3 (09:00→21:00)
[2016-12-21] MEDS: ENOXAPARIN SODIUM 40 MG/0.4 ML SYRINGE SQ SCH (09:56)
[2016-12-21] MEDS: SODIUM CHLORIDE 0.9% FLUSH 5 ML FLUSH IVF SCH ×2 (09:59→21:36)
--- NOTE | 2016-12-21 11:00 | HHI.PR ---
Subjective Subjective Notes PTD: 4 Patient resting in bed, with 2 guards at bedside. Patient is wondering when surgery will be? Objective Vitals/I&O Vital Signs Date Time Temp Pulse Resp B/P Pulse Ox O2 Delivery O2 Flow Rate FiO2 12/21/16 08:07 97.0 58 16 125/72 99 12/19/16 18:57 Room Air 12/19/16 08:55 21 12/18/16 10:15 3 Labs Laboratory Tests Test 12/17/16 12/19/16 16:10 05:12 Bedside Hemoglobin 15.0 G/DL Bedside Hematocrit 44.0 % Prothrombin Time 10.7 SEC Prothromb Time International 1.0 RATIO Ratio Activated Partial 22.0 SEC Thromboplast Time Bedside Sodium 143 MMOL/L Bedside Potassium 3.5 MMOL/L Bedside Chloride 106 MMOL/L Bedside Blood Urea Nitrogen 17 MG/DL Bedside Creatinine 1.6 MG/DL Bedside Glucose 120 MG/DL Blood Type A POSITIVE Antibody Screen NEGATIVE White Blood Count 11.3 TH/MM3 Red Blood Count 3.83 MIL/MM3 Hemoglobin 11.7 GM/DL Hematocrit 35.3 % Mean Corpuscular Volume 92.4 FL Mean Corpuscular Hemoglobin 30.5 PG Mean Corpuscular Hemoglobin 33.1 % Concent Red Cell Distribution Width 13.0 % Platelet Count 189 TH/MM3 Mean Platelet Volume 9.5 FL Neutrophils (%) (Auto) 58.8 % Lymphocytes (%) (Auto) 29.1 % Monocytes (%) (Auto) 10.9 % Eosinophils (%) (Auto) 0.6 % Basophils (%) (Auto) 0.6 % Neutrophils # (Auto) 6.7 TH/MM3 Lymphocytes # (Auto) 3.3 TH/MM3 Monocytes # (Auto) 1.2 TH/MM3 Eosinophils # (Auto) 0.1 TH/MM3 Basophils # (Auto) 0.1 TH/MM3 CBC Comment DIFF FINAL Differential Comment Sodium Level 142 MEQ/L Potassium Level 3.8 MEQ/L Chloride Level 108 MEQ/L Carbon Dioxide Level 28.5 MEQ/L Anion Gap 6 MEQ/L Blood Urea Nitrogen 13 MG/DL Creatinine 1.24 MG/DL Estimat Glomerular Filtration 61 ML/MIN Rate Random Glucose 85 MG/DL Calcium Level 8.4 MG/DL Magnesium Level 2.2 MG/DL Total Bilirubin 0.4 MG/DL Aspartate Amino Transf 22 U/L (AST/SGOT) Alanine Aminotransferase 17 U/L (ALT/SGPT) Alkaline Phosphatase 51 U/L Total Protein 5.9 GM/DL Albumin 3.0 GM/DL Radiology Last Impressions Multiplanar Reconstruction 12/18/16 1259 Signed Impressions: Service Date/Time: Saturday, December 17, 2016 16:24 - CONCLUSION: 1. Acetabular fracture as above. Javier Bruno MD Lower Extremity CT 12/18/16 1259 Signed Impressions: Service Date/Time: Saturday, December 17, 2016 16:24 - CONCLUSION: 1. Comminuted fracture through the posterior bony margin of the acetabulum as above. Javier Bruno MD Ankle X-Ray 12/18/16 0000 Signed Impressions: Service Date/Time: December 07:49 - CONCLUSION: 1. External fixation across comminuted distal tibial fracture. Javier Bruno MD Pelvis X-Ray 12/17/16 1605 Signed Impressions: Service Date/Time: Saturday, December 17, 2016 15:57 - CONCLUSION: Mildly comminuted fracture of the right acetabulum. Jonah Pang MD Head CT 12/17/16 1605 Signed Impressions: Service Date/Time: Saturday, December 17, 2016 16:18 - CONCLUSION: 1. Negative trauma CT with no evidence of fracture or hemorrhage. 2. Mild mucosal thickening in the ethmoidal air cells. Jonah Pang MD Chest X-Ray 12/17/16 1605 Signed Impressions: Service Date/Time: Saturday, December 17, 2016 15:57 - CONCLUSION: Suboptimal single view exam with the left-side of the chest wall and costophrenic angle cut off the study. There is no acute cardiopulmonary disease.. Jonah Pang MD Chest CT 12/17/16 1605 Signed Impressions: Service Date/Time: Saturday, December 17, 2016 16:24 - CONCLUSION: Negative trauma CT Jonah Pang MD Cervical Spine CT 12/17/16 1605 Signed Impressions: Service Date/Time: Saturday, December 17, 2016 16:18 - CONCLUSION: Negative trauma CT. Jonah Pang MD Abdomen/Pelvis CT 12/17/16 1605 Signed Impressions: Service Date/Time: Saturday, December 17, 2016 16:24 - CONCLUSION: 1. Mildly comminuted fracture deformity of the right acetabulum. 2. Subtle nondisplaced fractures involving the second third and fourth left lateral transverse processes. 3. No evidence of visceral injury. Jonah Pang MD Narrative Exam GENERAL: This is a young AA gentleman who is well developed, and well nourished and in no distress. SKIN: Warm and dry. HEAD: Atraumatic. Normocephalic. EYES: PERRLA ENT: No nasal bleeding or discharge. Mucous membranes pink and moist. NECK: Trachea midline. No JVD. CARDIOVASCULAR: Regular rate and rhythm. RESPIRATORY: No accessory muscle use. Lungs are clear to auscultation. Breath sounds equal bilaterally. No distress or dyspnea. GASTROINTESTINAL: BS + x 4 quads. Abdomen soft, non-tender, nondistended. MUSCULOSKELETAL: Extremities without cyanosis, or edema. LEFT lower extremity ex-fix in place (elevated leg on pillows ) + peripheral pulses x 4 extremities. Warm with good capillary refill and sensation. MAEW. NEUROLOGICAL: Awake and alert. Normal speech and pattern. A/P Problem List: (1) Ankle fracture Assessment and Plan [place]: This is a 36-year-old AA male who jumped out of a second story building window while running from the police. His initial complaints were of back pain , abdominal pain, and left ankle pain with some deformity. No LOC. INJURIES: LEFT distal tibial fracture with avulsion fracture of the posterior talus and lateral malleolus Right posterior acetabulum fracture L2, L3, L4 transverse process fractures Procedures: 12/17: Left ankle closed reduction and application of ex-fix. Consults: Orthopedics. Orthopedics plan for further surgery and ex-fix removal sometime this week once the swelling has decreased. TBD. Diet: Regular diet. Tolerating po diet. Encourage good po intake with each meal. Pulmonary: Encourage good pulmonary toileting. IS at bedside and pt encouraged to use. Rationale for use explained to patient, and verbalized understanding. PAIN Management: [place], Toradol, morphine IV PRN for breakthrough. Activity: OOB. PT and OT ordered. (NWB LLE; TTWB RLE) GI prophylaxis: Protonix po. Bowel regimen: Colace and MOM. Lactulose daily. No BM. Patient is refusing all bowel meds. Again discussed the importance of good bowel regimen while taking narcotic pain medications. Explained rationale in detail. Patient verbalized understanding and promised to take all prescribed stool softeners/ laxatives as scheduled. DVT prophylaxis: Mechanical VTE with SCDs. Chemical management with Lovenox 40 QD. DC Planning: Case management consulted for assistance with final discharge disposition. Patient will discharge to alf. Emotional support provided to patient at bedside and plan of care discussed. Discussed with RN at bedside Patient is hemodynamically stable and being managed on the med/surg floor. Problem Qualifiers (1) Ankle fracture: Qualified Code: S82.892A - Ankle fracture, left, closed, initial encounter Jennifer Armas Dec 21, 2016 11:00
[2016-12-21 12:30] VITALS: BP 119/77; PULSE 55; RESP 16; TEMP 97; O2SAT 99
[2016-12-21 16:44] VITALS: BP 118/82; PULSE 56; RESP 16; TEMP 98.7; O2SAT 100
[2016-12-21] MEDS: PANTOPRAZOLE SOD 40 MG DELAYED RELEASE TAB PO SCH (16:53)
[2016-12-21 18:33] VITALS: BP 126/75; PULSE 53; RESP 16; TEMP 97.1; O2SAT 96
[2016-12-21] MEDS: MAGNESIUM HYDROXIDE SUSP 30 ML CUP PO SCH (21:00)
[2016-12-22 00:30] VITALS: BP 127/69; PULSE 58; RESP 16; TEMP 97.5; O2SAT 98
--- NOTE | 2016-12-22 06:31 | PD.ORT.PN ---
Subjective Subjective Remarks Pain controlled, examined in bed. guards bedside Objective Vitals Vital Signs Date Time Temp Pulse Resp B/P Pulse Ox O2 Delivery O2 Flow Rate FiO2 12/22/16 00:30 97.5 58 16 127/69 98 12/21/16 18:33 97.1 53 16 126/75 96 12/21/16 16:44 98.7 56 16 118/82 100 12/21/16 12:30 97.0 55 16 119/77 99 12/21/16 08:07 97.0 58 16 125/72 99 I/O 12/21/16 12/21/16 12/21/16 12/22/16 12/22/16 12/22/16 07:00 15:00 23:00 07:00 15:00 23:00 Intake Total 240 ml 480 ml 240 ml Output Total 350 ml 800 ml 400 ml Balance -110 ml -320 ml -160 ml Intake Oral 240 ml 480 ml 240 ml Output Urine Total 350 ml 800 ml 400 ml # Bowel Movements 0 0 Result Diagram: 12/19/16 0512 12/19/16 0512 Imaging Last 24 hours Impressions Multiplanar Reconstruction 12/18/169 Signed Impressions: Service Date/Time: Saturday, December 17, 2016 16:24 - CONCLUSION: 1. Acetabular fracture as above. Javier Bruno MD Lower Extremity CT 12/18/16 1259 Signed Impressions: Service Date/Time: Saturday, December 17, 2016 16:24 - CONCLUSION: 1. Comminuted fracture through the posterior bony margin of the acetabulum as above. Javier Bruno MD Objective Remarks Left lower extremity: No pain with hip or knee range of motion. External fixator in place over ankle. Swelling of +3. Intact sensation distally and is able to move toes. Right lower extremity: Pain with range of motion of hip. No pain with knee or ankle range of motion. Distally intact sensation with strong dorsiflexion/ plantar flexion of foot Assessment & Plan Assessment and Plan Left tibial Pilon fracture status post external fixation POD 4 Right posterior column acetabular fracture Due to significant portion of posterior acetabulum column surgical intervention is necessary for stabilization of right hip. We will plan on surgery tomorrow morning. Left lower extremity nonweightbearing elevation to decrease swelling, Ice - swelling slowly improving Pin care twice a day Nothing by mouth after midnight Sign consents Surgery tomorrow morning for right acetabulum CRISTINA HASSAN PA-C Dec 22, 2016 06:31
[2016-12-22 07:45] VITALS: BP 143/66; PULSE 63; RESP 16; TEMP 97.7; O2SAT 99
[2016-12-22 08:05] LABS: HEMATOCRIT 37.9 % (39.0-51.0); MEAN CELL VOLUME 90.2 FL (80.0-100.0); MEAN CORPUSCULAR HEMOGLOBIN 30.6 PG (27.0-34.0); MEAN CORPUSCULAR HGB CONC 33.9 % (32.0-36.0); PLATELET COUNT 231 TH/MM3 (150-450); RED CELL DISTRIBUTION WIDTH 12.9 % (11.6-17.2); REVIEW FLAG FINAL; WHITE BLOOD COUNT 9.6 TH/MM3 (4.0-11.0)
[2016-12-22] MEDS: DOCUSATE SODIUM 50 MG/SENNA 8.6 MG TAB PO SCH ×2 (08:14→19:52)
[2016-12-22] MEDS: LACTULOSE SYRUP 20 GM/30 ML CUP PO SCH (08:14)
[2016-12-22] MEDS: ACETAMINOPHEN/HYDROcodone 325 MG/7.5 MG TAB PO PRN ×4 (08:15→19:51)
[2016-12-22] MEDS: SODIUM CHLORIDE 0.9% FLUSH 5 ML FLUSH IVF SCH ×2 (08:16→19:51)
[2016-12-22 12:16] VITALS: BP 123/78; PULSE 64; RESP 16; TEMP 97.4; O2SAT 100
--- NOTE | 2016-12-22 12:21 | HHI.PR ---
Subjective Subjective Notes Surgery with Ortho tomorrow for RIGHT acetabulum repair Pain controlled. No BM yet, + gas. Objective Vitals/I&O Vital Signs Date Time Temp Pulse Resp B/P Pulse Ox O2 Delivery O2 Flow Rate FiO2 12/22/16 07:45 97.7 63 16 143/66 99 12/22/16 07:08 Room Air 12/19/16 08:55 21 12/18/16 10:15 3 Labs Laboratory Tests Test 12/22/16 07:31 White Blood Count 9.6 Red Blood Count 4.20 Hemoglobin 12.8 Hematocrit 37.9 Mean Corpuscular Volume 90.2 Mean Corpuscular Hemoglobin 30.6 Mean Corpuscular Hemoglobin 33.9 Concent Red Cell Distribution Width 12.9 Platelet Count 231 Mean Platelet Volume 9.6 Blood Type A POSITIVE Antibody Screen NEGATIVE Crossmatch Leukocyte-Reduced Red Blood Cells Blood Bank Comment Radiology Last Impressions Multiplanar Reconstruction 12/18/16 1259 Signed Impressions: Service Date/Time: Saturday, December 17, 2016 16:24 - CONCLUSION: 1. Acetabular fracture as above. Javier Bruno MD Lower Extremity CT 12/18/16 1259 Signed Impressions: Service Date/Time: Saturday, December 17, 2016 16:24 - CONCLUSION: 1. Comminuted fracture through the posterior bony margin of the acetabulum as above. Javier Bruno MD Ankle X-Ray 12/18/16 0000 Signed Impressions: Service Date/Time: December 07:49 - CONCLUSION: 1. External fixation across comminuted distal tibial fracture. Javier Bruno MD Pelvis X-Ray 12/17/16 1605 Signed Impressions: Service Date/Time: Saturday, December 17, 2016 15:57 - CONCLUSION: Mildly comminuted fracture of the right acetabulum. Jonah Pang MD Head CT 12/17/16 1605 Signed Impressions: Service Date/Time: Saturday, December 17, 2016 16:18 - CONCLUSION: 1. Negative trauma CT with no evidence of fracture or hemorrhage. 2. Mild mucosal thickening in the ethmoidal air cells. Jonah Pang MD Chest X-Ray 12/17/16 1605 Signed Impressions: Service Date/Time: Saturday, December 17, 2016 15:57 - CONCLUSION: Suboptimal single view exam with the left-side of the chest wall and costophrenic angle cut off the study. There is no acute cardiopulmonary disease.. Jonah Pang MD Chest CT 12/17/16 1605 Signed Impressions: Service Date/Time: Saturday, December 17, 2016 16:24 - CONCLUSION: Negative trauma CT Jonah Pang MD Cervical Spine CT 12/17/16 1605 Signed Impressions: Service Date/Time: Saturday, December 17, 2016 16:18 - CONCLUSION: Negative trauma CT. Jonah Pang MD Abdomen/Pelvis CT 12/17/16 1605 Signed Impressions: Service Date/Time: Saturday, December 17, 2016 16:24 - CONCLUSION: 1. Mildly comminuted fracture deformity of the right acetabulum. 2. Subtle nondisplaced fractures involving the second third and fourth left lateral transverse processes. 3. No evidence of visceral injury. Jonah Pang MD Narrative Exam GENERAL: 36 year old well-nourished, well developed male lying in bed. SKIN: Warm and dry. HEAD: Normocephalic. ENT: No nasal bleeding or discharge. Mucous membranes pink and moist. NECK: Trachea midline. No JVD. CARDIOVASCULAR: Regular rate and rhythm. RESPIRATORY: No accessory muscle use. Lungs clear to auscultation. Breath sounds equal bilaterally. GASTROINTESTINAL: Abdomen soft, non-tender, nondistended. + BS. MUSCULOSKELETAL: Extremities without cyanosis, +2 edema LLE. LEFT ankle ex-fix in place. NEUROLOGICAL: Awake and alert. Normal speech. A/P Problem List: (1) Ankle fracture Assessment and Plan [place]: Jumped out of a second story building window running from police. Initial complaints of back pain, abdominal pain and left ankle pain with deformity. No LOC. INJURIES: LEFT distal tibial fx with avulsion fracture of posterior talus and lateral malleolus RIGHT posterior acetabulum fx L2, L3, L4 transverse process fx 12/17: Left ankle closed reduction and application of external fixator Diet: Regular and tolerating Pulmonary: IS, encouraged patient use. Pain: [place] 7.5. Pain controlled. Activity: OOB, PT evaluated and ambulated patient in [place]. (NWB LLE, TTWB RLE) GI: Protonix PO Bowel: Tasha-colace 2 tabs BID. Lactulose daily. No BM yet. Refusing MOM and bowel regimen intermittently. Educated about importance. DVT: SCD. Lovenox 40 q day Plan for right acetabulum fracture repair tomorrow with orthopedics. Ortho planning for ex-fix removal of left ankle and ORIF when swelling reduced. Case management consulted to assist with discharge planning. Patient will need to discharge to nursing home when cleared by Ortho. Plan of care discussed with patient at bedside. The exam, history, and the medical decision-making described in the above note were completed with the assistance of the mid-level provider. I reviewed and agree with the findings presented. I attest that I had a [id number] encounter with the patient on the same day, and personally performed and documented my assessment and findings in the medical record. Problem Qualifiers (1) Ankle fracture: Qualified Code: S82.892A - Ankle fracture, left, closed, initial encounter Jus Zheng Dec 22, 2016 12:21 Jin Mata MD Dec 22, 2016 19:23
[2016-12-22 16:38] VITALS: BP 115/67; PULSE 63; RESP 16; TEMP 97.9; O2SAT 98
[2016-12-22] MEDS: PANTOPRAZOLE SOD 40 MG DELAYED RELEASE TAB PO SCH (18:10)
[2016-12-22] MEDS: MAGNESIUM HYDROXIDE SUSP 30 ML CUP PO SCH (19:51)
[2016-12-22 20:00] VITALS: BP 138/77; PULSE 59; RESP 17; TEMP 97.1; O2SAT 99
[2016-12-22] MEDS: LACTATED RINGER'S 1000 ML IV SCH (23:15)
[2016-12-22] MEDS ORDERED: INSULIN HUMAN REGULAR 1,000 UNITS/10 ML VIAL SQ PRN (23:15)
[2016-12-22] MEDS ORDERED: METOPROLOL TARTRATE 25 MG TAB PO PRN (23:15)
[2016-12-22] MEDS: SODIUM CHLORID 0.9% 500 ML IV SCH (23:15)
[2016-12-22 23:40] VITALS: BP 114/72; PULSE 60; RESP 16; TEMP 97.9; O2SAT 98
[2016-12-23] MEDS: ACETAMINOPHEN/HYDROcodone 325 MG/7.5 MG TAB PO PRN (04:34)
[2016-12-23 05:45] VITALS: BP 129/68; PULSE 61; RESP 16; TEMP 98.4; O2SAT 98
[2016-12-23] MEDS ORDERED: SODIUM CHLORIDE 0.9% IV SCH (06:15)
[2016-12-23] MEDS ORDERED: TRANEXAMIC ACID IV SCH (06:15)
--- NOTE | 2016-12-23 06:19 | PD.ORT.PN ---
Subjective Subjective Remarks Pain controlled, examined in bed. guards bedside Objective Vitals Vital Signs Date Time Temp Pulse Resp B/P Pulse Ox O2 Delivery O2 Flow Rate FiO2 12/22/16 23:40 97.9 60 16 114/72 98 12/22/16 20:00 97.1 59 17 138/77 99 12/22/16 18:56 Room Air 12/22/16 16:38 97.9 63 16 115/67 98 12/22/16 12:16 97.4 64 16 123/78 100 12/22/16 07:45 97.7 63 16 143/66 99 12/22/16 07:08 Room Air I/O 12/22/16 12/22/16 12/22/16 12/23/16 12/23/16 12/23/16 07:00 15:00 23:00 07:00 15:00 23:00 Intake Total 240 ml 720 ml 720 ml 240 ml Output Total 650 ml 500 ml 2 ml 300 ml Balance -410 ml 220 ml 718 ml -60 ml Intake Oral 240 ml 720 ml 720 ml 240 ml Output Urine Total 650 ml 500 ml 2 ml 300 ml # Voids 1 # Bowel Movements 0 1 1 0 Result Diagram: 12/22/16 0731 12/19/16 0512 Imaging Last 24 hours Impressions Multiplanar Reconstruction 12/18/16 1259 Signed Impressions: Service Date/Time: Saturday, December 17, 2016 16:24 - CONCLUSION: 1. Acetabular fracture as above. Javier Bruno MD Lower Extremity CT 12/18/16 1259 Signed Impressions: Service Date/Time: Saturday, December 17, 2016 16:24 - CONCLUSION: 1. Comminuted fracture through the posterior bony margin of the acetabulum as above. Javier Bruno MD Objective Remarks Left lower extremity: No pain with hip or knee range of motion. External fixator in place over ankle. Swelling of +3. Intact sensation distally and is able to move toes. Right lower extremity: Pain with range of motion of hip. No pain with knee or ankle range of motion. Distally intact sensation with strong dorsiflexion/ plantar flexion of foot Assessment & Plan Assessment and Plan Left tibial Pilon fracture status post external fixation POD 5 Right posterior column acetabular fracture Due to significant portion of posterior acetabulum column surgical intervention is necessary for stabilization of right hip. We will plan on surgery tomorrow morning. Left lower extremity nonweightbearing elevation to decrease swelling, Ice - swelling slowly improving Pin care twice a day Nothing by mouth Surgery today for right acetabulum CRISTINA HASSAN PA-C Dec 23, 2016 06:19
[2016-12-23] MEDS ORDERED: SODIUM CHLOR 0.9% 250 ML INJ 250 ML ONE (06:56)
[2016-12-23] MEDS ORDERED: ceFAZolin 2 GM PREMIX 50 ML ONE (06:56)
[2016-12-23] MEDS ORDERED: GENTAMICIN SULFATE 80 MG/2 ML VIAL ONE (06:56)
[2016-12-23] MEDS ORDERED: VANCOMYCIN HCL 1000 MG VIAL ONE (06:56)
[2016-12-23] MEDS ORDERED: HEPARIN SODIUM - SQ 10,000 UNITS/ML VIAL ONE (07:17)
[2016-12-23] MEDS ORDERED: HYDROmorphone HCL PF 2 MG/ML VIAL ONE (08:05)
[2016-12-23] MEDS: DOCUSATE SODIUM 50 MG/SENNA 8.6 MG TAB PO SCH ×2 (09:00→20:33)
[2016-12-23] MEDS: LACTULOSE SYRUP 20 GM/30 ML CUP PO SCH (09:00)
[2016-12-23] MEDS: SODIUM CHLORIDE 0.9% FLUSH 5 ML FLUSH IVF SCH ×2 (09:00→20:33)
[2016-12-23] MEDS ORDERED: PROPOFOL 200 MG/20 ML AMP IV ONE (09:22)
[2016-12-23] MEDS ORDERED: LACTATED RINGER'S 1000 ML INJ 1,000 ML IV ONE (09:22)
[2016-12-23] MEDS ORDERED: ONDANSETRON HCL 4 MG/2 ML VIAL IV PUSH ONE (09:22)
[2016-12-23] MEDS ORDERED: NEOSTIGMINE 3 MG/3 ML SYR IV ONE (09:22)
[2016-12-23] MEDS ORDERED: MORPHINE SULFATE 30 MG/30 ML PCA IV SCH (09:45)
[2016-12-23] MEDS ORDERED: MORPHINE SULFATE 4 MG/ML INJ IV PUSH PRN (09:45)
[2016-12-23] MEDS ORDERED: MISCELLANEOUS NURSING INFORMATION XX PRN (09:45)
[2016-12-23] MEDS ORDERED: ACETAMINOPHEN/HYDROcodone 325 MG/10 MG TAB PO PRN (09:45)
[2016-12-23] MEDS ORDERED: MISCELLANEOUS PHARMACY INFORMATION XX ONE (09:45)
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
[2016-12-23] MEDS ORDERED: *morphine SULFATE 8 MG/ML PERIprocedure ONLY ONE (10:24)
[2016-12-23] MEDS ORDERED: DO NOT ADM ANY ANTICOAGULANT DRUGS XX PRN (10:30)
[2016-12-23] MEDS: LACTATED RINGER'S 1000 ML INJ 1,000 ML IV SCH ×2 (10:34→19:36)
[2016-12-23] MEDS: ceFAZolin 2 GM PREMIX 50 ML IV SCH ×2 (11:11→20:32)
[2016-12-23] MEDS: ACETAMINOPHEN/HYDROcodone 325 MG/10 MG TAB PO PRN ×5 (11:12→23:14)
[2016-12-23 12:00] VITALS: BP 140/77; PULSE 73; RESP 18; TEMP 97; O2SAT 96
[2016-12-23] MEDS ORDERED: fentaNYL CITRATE 250 MCG/5 ML AMP ONE ×2 (13:19→13:24)
[2016-12-23] MEDS: PCA - TOTAL MG MORPHINE DELIVERED PER SHIFT SCH ×2 (14:00→20:34)
--- NOTE | 2016-12-23 14:55 | RADRPT ---
EXAM DATE/TIME: 12/23/2016 09:21 [facility] COMPARISON: No previous studies available for comparison. INDICATIONS : ORIF right acetabulum. MEDICAL HISTORY : None. SURGICAL HISTORY : None. ENCOUNTER: Subsequent ACUITY: 4 - 6 days PAIN SCORE: Non-responsive. LOCATION: Right acetabulum. CONCLUSION: Fluoroscopic images during placement of plate and screws along the right acetabulum w hich is near anatomic alignment. Tyler Thornton MD on December 23, 2016 at 14:52 Board Certified Radiologist. This report was verified electronically.
[2016-12-23 15:37] VITALS: BP 127/77; PULSE 70; RESP 18; TEMP 98; O2SAT 98
[2016-12-23] MEDS: SODIUM CHLORID 0.9% 500 ML IV SCH (15:55)
[2016-12-23] MEDS: PANTOPRAZOLE SOD 40 MG DELAYED RELEASE TAB PO SCH (17:00)
[2016-12-23] MEDS ORDERED: PROMETHAZINE INJ 25 MG/ML VIAL IM PRN (17:15)
[2016-12-23 19:23] VITALS: BP 117/70; PULSE 72; RESP 16; TEMP 98.2; O2SAT 98
[2016-12-23] MEDS: VANCOMYCIN INJ 1,000 MG in SODIUM CHLOR 0.9% 250 ML INJ 250 ML IV SCH (20:33)
[2016-12-23] MEDS: MAGNESIUM HYDROXIDE SUSP 30 ML CUP PO SCH (20:33)
[2016-12-23] MEDS: ENOXAPARIN SODIUM 30 MG/0.3 ML SYRINGE SQ SCH (22:22)
[2016-12-23] MEDS: LACTATED RINGER'S 1000 ML IV SCH (23:15)
[2016-12-24] VITALS (7 sets, daily range): BP systolic 106–150; BP diastolic 65–79; PULSE 62–95; RESP 16–18; TEMP 98.2–99; O2SAT 98–100
[2016-12-24] MEDS: ceFAZolin 2 GM PREMIX 50 ML IV SCH ×3 (03:45→19:56)
[2016-12-24] MEDS: LACTATED RINGER'S 1000 ML INJ 1,000 ML IV SCH ×2 (03:51→15:36)
[2016-12-24] MEDS: PCA - TOTAL MG MORPHINE DELIVERED PER SHIFT SCH ×3 (06:00→22:00)
--- NOTE | 2016-12-24 06:22 | PD.ORT.PN ---
Subjective Subjective Remarks POD 1 s/p ORIF right acetabulum s/p exfix left tibial pilon fx reports pain in right hip Objective Vitals Vital Signs Date Time Temp Pulse Resp B/P Pulse Ox O2 Delivery O2 Flow Rate FiO2 12/24/16 03:50 98.2 81 16 145/74 98 12/24/16 00:05 98.2 77 16 150/65 98 12/23/16 19:26 Room Air 12/23/16 19:23 98.2 72 16 117/70 98 12/23/16 15:37 98.0 70 18 127/77 98 12/23/16 14:00 17 12/23/16 12:12 17 12/23/16 12:00 97.0 73 18 140/77 96 12/23/16 11:39 17 12/23/16 10:45 69 15 126/97 94 Nasal Cannula 4 12/23/16 10:35 15 12/23/16 10:30 80 13 140/97 96 Nasal Cannula 4 12/23/16 10:15 82 15 145/86 95 Nasal Cannula 4 12/23/16 10:03 98.8 107 16 139/70 93 Nasal Cannula 4 I/O 12/23/16 12/23/16 12/23/16 12/24/16 12/24/16 12/24/16 07:00 15:00 23:00 07:00 15:00 23:00 Intake Total 240 ml 800 ml 960 ml 480 ml Output Total 300 ml 560 ml 735 ml 400 ml Balance -60 ml 240 ml 225 ml 80 ml Intake Oral 240 ml 0 ml 960 ml 480 ml Other 800 ml Output Urine Total 300 ml 50 ml 700 ml 400 ml Drainage Total 10 ml 35 ml Estimated Blood Loss 200 ml Other 300 ml # Voids 1 # Bowel Movements 0 0 0 0 Result Diagram: 12/22/16 0731 Imaging Last 24 hours Impressions Multiplanar Reconstruction 12/18/16 1259 Signed Impressions: Service Date/Time: Saturday, December 17, 2016 16:24 - CONCLUSION: 1. Acetabular fracture as above. Javier Bruno MD Lower Extremity CT 12/18/16 1259 Signed Impressions: Service Date/Time: Saturday, December 17, 2016 16:24 - CONCLUSION: 1. Comminuted fracture through the posterior bony margin of the acetabulum as above. Javier Bruno MD Objective Remarks Left lower extremity: No pain with hip or knee range of motion. External fixator in place over ankle. Swelling of +3. Intact sensation distally and is able to move toes. Right lower extremity: dressings clean and dry. intact. +drain. +knee brace. NVI with good dorsiflexion Assessment & Plan Assessment and Plan 1) Left tibial Pilon fracture status post external fixation POD 6 2) Right posterior column acetabular fracture s/p ORIF - POD 1 -NWB BLE -no active leg lifts of right leg maintain knee brace right leg at all times plan for dressing changes POD 2 with removal of drain of right hip still awaiting decrease of swelling of left ankle. elevate and ice. Praveen Esparza Dec 24, 2016 06:22
[2016-12-24 06:59] LABS: HEMATOCRIT 38.9 % (39.0-51.0); REVIEW FLAG FINAL
[2016-12-24] MEDS: VANCOMYCIN INJ 1,000 MG in SODIUM CHLOR 0.9% 250 ML INJ 250 ML IV SCH ×2 (08:34→20:42)
[2016-12-24] MEDS: INDOMETHACIN 75 MG CONTROLLED RELEASE CAP PO SCH (08:36)
[2016-12-24] MEDS: DOCUSATE SODIUM 50 MG/SENNA 8.6 MG TAB PO SCH ×2 (08:36→20:43)
[2016-12-24] MEDS: ACETAMINOPHEN/HYDROcodone 325 MG/10 MG TAB PO PRN ×2 (08:55→17:26)
[2016-12-24] MEDS: LACTULOSE SYRUP 20 GM/30 ML CUP PO SCH ×2 (09:00→17:25)
[2016-12-24] MEDS: SODIUM CHLORIDE 0.9% FLUSH 5 ML FLUSH IVF SCH ×2 (09:00→19:57)
[2016-12-24] MEDS: ENOXAPARIN SODIUM 30 MG/0.3 ML SYRINGE SQ SCH ×2 (10:00→20:43)
[2016-12-24] MEDS: PANTOPRAZOLE SOD 40 MG DELAYED RELEASE TAB PO SCH (17:26)
[2016-12-24] MEDS: MAGNESIUM HYDROXIDE SUSP 30 ML CUP PO SCH (20:44)
[2016-12-24] MEDS: LACTATED RINGER'S 1000 ML IV SCH (23:15)
[2016-12-25 00:15] VITALS: BP 130/75; PULSE 67; RESP 16; TEMP 97.9; O2SAT 100
[2016-12-25] MEDS: LACTATED RINGER'S 1000 ML INJ 1,000 ML IV SCH ×3 (01:36→21:36)
[2016-12-25] MEDS: ceFAZolin 2 GM PREMIX 50 ML IV SCH ×3 (03:23→20:51)
[2016-12-25] MEDS: PCA - TOTAL MG MORPHINE DELIVERED PER SHIFT SCH ×3 (03:23→22:00)
--- NOTE | 2016-12-25 06:24 | PD.ORT.PN ---
Subjective Subjective Remarks POD 2 s/p ORIF right acetabulum s/p exfix left tibial pilon fx reports pain in right hip. resting comfortably otherwise Objective Vitals Vital Signs Date Time Temp Pulse Resp B/P Pulse Ox O2 Delivery O2 Flow Rate FiO2 12/25/16 00:15 97.9 67 16 130/75 100 12/24/16 19:22 99.0 66 16 116/70 99 12/24/16 18:52 Room Air 12/24/16 15:25 98.7 76 16 126/75 99 12/24/16 12:00 99.0 62 18 106/70 99 12/24/16 08:36 98 12/24/16 08:00 98.8 95 18 111/79 100 12/24/16 07:05 Room Air I/O 12/24/16 12/24/16 12/24/16 12/25/16 12/25/16 12/25/16 07:00 15:00 23:00 07:00 15:00 23:00 Intake Total 480 ml 480 ml Output Total 410 ml 5 ml Balance 70 ml 475 ml Intake Oral 480 ml 480 ml Output Urine Total 400 ml Drainage Total 10 ml 5 ml # Voids 1 # Bowel Movements 0 0 Result Diagram: 12/24/16 0625 Imaging Last 24 hours Impressions Multiplanar Reconstruction 12/18/16 1259 Signed Impressions: Service Date/Time: Saturday, December 17, 2016 16:24 - CONCLUSION: 1. Acetabular fracture as above. Javier Bruno MD Lower Extremity CT 12/18/16 1259 Signed Impressions: Service Date/Time: Saturday, December 17, 2016 16:24 - CONCLUSION: 1. Comminuted fracture through the posterior bony margin of the acetabulum as above. Javier Bruno MD Objective Remarks Left lower extremity: No pain with hip or knee range of motion. External fixator in place over ankle. Swelling of +3. Intact sensation distally and is able to move toes. Right lower extremity: dressings clean and dry. intact. +drain. +knee brace. NVI with good dorsiflexion Assessment & Plan Assessment and Plan 1) Left tibial Pilon fracture status post external fixation POD 6 2) Right posterior column acetabular fracture s/p ORIF - POD 1 -NWB BLE -no active leg lifts of right leg maintain knee brace right leg at all times plan for dressing changes POD 2 with removal of drain of right hip still awaiting decrease of swelling of left ankle. elevate and ice. Praveen Esparza Dec 25, 2016 06:24
[2016-12-25 08:00] VITALS: BP 118/63; PULSE 78; RESP 18; TEMP 97.9; O2SAT 99
[2016-12-25] MEDS: VANCOMYCIN INJ 1,000 MG in SODIUM CHLOR 0.9% 250 ML INJ 250 ML IV SCH (08:00)
[2016-12-25] MEDS: SODIUM CHLORIDE 0.9% FLUSH 5 ML FLUSH IVF SCH ×2 (08:16→20:52)
[2016-12-25] MEDS: INDOMETHACIN 75 MG CONTROLLED RELEASE CAP PO SCH (08:16)
[2016-12-25] MEDS: DOCUSATE SODIUM 50 MG/SENNA 8.6 MG TAB PO SCH ×2 (08:24→20:52)
[2016-12-25] MEDS: LACTULOSE SYRUP 20 GM/30 ML CUP PO SCH (08:24)
[2016-12-25] MEDS: ENOXAPARIN SODIUM 30 MG/0.3 ML SYRINGE SQ SCH ×2 (10:40→22:07)
[2016-12-25 12:00] VITALS: BP 94/65; PULSE 84; RESP 18; TEMP 98.2; O2SAT 100
[2016-12-25] MEDS: ACETAMINOPHEN/HYDROcodone 325 MG/10 MG TAB PO PRN ×3 (13:01→20:52)
[2016-12-25 16:00] VITALS: BP 112/67; PULSE 67; RESP 18; TEMP 97.8; O2SAT 99
[2016-12-25] MEDS: PANTOPRAZOLE SOD 40 MG DELAYED RELEASE TAB PO SCH (17:00)
[2016-12-25 20:35] VITALS: BP 101/71; PULSE 73; RESP 16; TEMP 98.6; O2SAT 99
[2016-12-25] MEDS: MAGNESIUM HYDROXIDE SUSP 30 ML CUP PO SCH (20:52)
[2016-12-25] MEDS: LACTATED RINGER'S 1000 ML IV SCH (23:15)
[2016-12-26] VITALS (7 sets, daily range): BP systolic 108–129; BP diastolic 63–78; PULSE 71–90; RESP 16–20; TEMP 97.2–99.3; O2SAT 97–100
[2016-12-26] MEDS: ACETAMINOPHEN/HYDROcodone 325 MG/10 MG TAB PO PRN ×3 (01:56→18:47)
[2016-12-26] MEDS: ceFAZolin 2 GM PREMIX 50 ML IV SCH (03:39)
[2016-12-26] MEDS: PCA - TOTAL MG MORPHINE DELIVERED PER SHIFT SCH ×3 (06:00→22:00)
--- NOTE | 2016-12-26 06:54 | PD.ORT.PN ---
Subjective Subjective Remarks POD 3 s/p ORIF right acetabulum s/p exfix left tibial pilon fx reports pain in right hip. resting comfortably otherwise Objective Vitals Vital Signs Date Time Temp Pulse Resp B/P Pulse Ox O2 Delivery O2 Flow Rate FiO2 12/26/16 00:10 97.2 74 16 119/68 100 12/25/16 20:35 98.6 73 16 101/71 99 12/25/16 20:00 99 Room Air 12/25/16 16:00 97.8 67 18 112/67 99 12/25/16 12:00 98.2 84 18 94/65 100 12/25/16 08:10 Room Air 12/25/16 08:00 97.9 78 18 118/63 99 I/O 12/25/16 12/25/16 12/25/16 12/26/16 12/26/16 12/26/16 07:00 15:00 23:00 07:00 15:00 23:00 Intake Total 240 ml 1410 ml 480 ml Output Total 10 ml 10 ml Balance 230 ml 1400 ml 480 ml Intake Oral 240 ml 960 ml 480 ml IV Total 450 ml Drainage Total 10 ml 10 ml # Voids 1 2 1 # Bowel Movements 0 1 0 Result Diagram: 12/24/16 0625 Imaging Last 24 hours Impressions Multiplanar Reconstruction 12/18/16 1259 Signed Impressions: Service Date/Time: Saturday, December 17, 2016 16:24 - CONCLUSION: 1. Acetabular fracture as above. Javier Bruno MD Lower Extremity CT 12/18/16 1259 Signed Impressions: Service Date/Time: Saturday, December 17, 2016 16:24 - CONCLUSION: 1. Comminuted fracture through the posterior bony margin of the acetabulum as above. Javier Bruno MD Objective Remarks Left lower extremity: No pain with hip or knee range of motion. External fixator in place over ankle. Swelling of +3. Intact sensation distally and is able to move toes. Right lower extremity: dressings clean and dry. intact. +drain. +knee brace. NVI with good dorsiflexion Assessment & Plan Assessment and Plan 1) Left tibial Pilon fracture status post external fixation POD 7 2) Right posterior column acetabular fracture s/p ORIF - POD 3 -NWB BLE -no active leg lifts of right leg maintain knee brace right leg at all times daily dressing changes right hip and pin care BID left ankle elevate and ICE ankle. still too swollen for surgery will re-eval next week and plan for surgery thu/. NPO after MN thursday and hold lovenox thursday in prep for potential surgery thursday Praveen Esparza Dec 26, 2016 06:54
[2016-12-26] MEDS: LACTATED RINGER'S 1000 ML INJ 1,000 ML IV SCH ×2 (07:36→17:19)
[2016-12-26] MEDS: LACTULOSE SYRUP 20 GM/30 ML CUP PO SCH (09:00)
[2016-12-26] MEDS: DOCUSATE SODIUM 50 MG/SENNA 8.6 MG TAB PO SCH ×2 (09:00→20:36)
[2016-12-26] MEDS: INDOMETHACIN 75 MG CONTROLLED RELEASE CAP PO SCH (09:09)
[2016-12-26] MEDS: ENOXAPARIN SODIUM 30 MG/0.3 ML SYRINGE SQ SCH ×2 (09:09→22:34)
[2016-12-26] MEDS: SODIUM CHLORIDE 0.9% FLUSH 5 ML FLUSH IVF SCH ×2 (09:09→20:36)
[2016-12-26] MEDS: PANTOPRAZOLE SOD 40 MG DELAYED RELEASE TAB PO SCH (17:00)
[2016-12-26] MEDS: MAGNESIUM HYDROXIDE SUSP 30 ML CUP PO SCH (20:37)
[2016-12-26] MEDS: LACTATED RINGER'S 1000 ML IV SCH (23:15)
[2016-12-27] VITALS: BP 126/69; PULSE 67; RESP 16; TEMP 96.5; O2SAT 99
[2016-12-27] MEDS: LACTATED RINGER'S 1000 ML INJ 1,000 ML IV SCH ×3 (03:36→23:36)
[2016-12-27] MEDS: ACETAMINOPHEN/HYDROcodone 325 MG/10 MG TAB PO PRN ×2 (04:17→21:09)
[2016-12-27] MEDS: PCA - TOTAL MG MORPHINE DELIVERED PER SHIFT SCH ×3 (06:00→21:08)
[2016-12-27 08:00] VITALS: BP 130/84; PULSE 80; RESP 18; TEMP 97.4; O2SAT 99
--- NOTE | 2016-12-27 08:40 | PD.ORT.PN ---
Subjective Subjective Remarks Patient comfortable. Pain controlled. Police officers at bedside. Objective Vitals Vital Signs Date Time Temp Pulse Resp B/P Pulse Ox O2 Delivery O2 Flow Rate FiO2 12/27/16 00:00 96.5 67 16 126/69 99 12/26/16 20:20 98.4 90 16 129/78 99 12/26/16 18:08 99 21 12/26/16 16:00 97.3 75 20 108/69 100 12/26/16 14:20 98 21 12/26/16 12:00 99.3 77 20 126/77 99 I/O 12/26/16 12/26/16 12/26/16 12/27/16 12/27/16 12/27/16 07:00 15:00 23:00 07:00 15:00 23:00 Intake Total 240 ml 1200 ml 720 ml 360 ml Output Total 750 ml 500 ml 450 ml 350 ml Balance -510 ml 700 ml 270 ml 10 ml Intake Oral 240 ml 1200 ml 720 ml 360 ml Output Urine Total 750 ml 500 ml 450 ml 350 ml # Bowel Movements 0 Result Diagram: 12/24/16 0625 Imaging Last 24 hours Impressions Multiplanar Reconstruction 12/18/16 1259 Signed Impressions: Service Date/Time: Saturday, December 17, 2016 16:24 - CONCLUSION: 1. Acetabular fracture as above. Javier Bruno MD Lower Extremity CT 12/18/16 1259 Signed Impressions: Service Date/Time: Saturday, December 17, 2016 16:24 - CONCLUSION: 1. Comminuted fracture through the posterior bony margin of the acetabulum as above. Javier Bruno MD Objective Remarks Left lower extremity: No pain with hip or knee range of motion. External fixator in place over ankle. Swelling of +3. Intact sensation distally and is able to move toes. Right lower extremity: dressings clean and dry. intact. +drain. +knee brace. NVI with good dorsiflexion Assessment & Plan Assessment and Plan 1) Left tibial Pilon fracture status post external fixation POD 8 2) Right posterior column acetabular fracture s/p ORIF - POD 4 -NWB BLE -no active leg lifts of right leg maintain knee brace right leg at all times daily dressing changes right hip and pin care BID left ankle elevate and ICE ankle. will re-eval next week and plan for surgery mon/tu. NPO after MN thursday and hold lovenox thursday in prep for potential surgery thursday Dr. Fletcher present during patient assessment Eriberto Jennings Dec 27, 2016 08:40
[2016-12-27] MEDS: SODIUM CHLORIDE 0.9% FLUSH 5 ML FLUSH IVF SCH ×2 (09:00→21:08)
[2016-12-27] MEDS: LACTULOSE SYRUP 20 GM/30 ML CUP PO SCH ×2 (09:00→09:41)
[2016-12-27] MEDS: DOCUSATE SODIUM 50 MG/SENNA 8.6 MG TAB PO SCH ×3 (09:00→21:00)
[2016-12-27] MEDS: INDOMETHACIN 75 MG CONTROLLED RELEASE CAP PO SCH ×2 (09:00→09:41)
[2016-12-27] MEDS: ENOXAPARIN SODIUM 30 MG/0.3 ML SYRINGE SQ SCH ×2 (09:42→21:08)
[2016-12-27 09:54] VITALS: O2SAT 98
[2016-12-27 12:00] VITALS: BP 132/71; PULSE 66; RESP 19; TEMP 96.1; O2SAT 100
[2016-12-27 16:00] VITALS: BP 114/73; PULSE 71; RESP 18; TEMP 98.5; O2SAT 99
[2016-12-27] MEDS: PANTOPRAZOLE SOD 40 MG DELAYED RELEASE TAB PO SCH (17:00)
[2016-12-27 20:00] VITALS: BP 121/69; PULSE 69; RESP 16; TEMP 98.7; O2SAT 99
[2016-12-27] MEDS: MAGNESIUM HYDROXIDE SUSP 30 ML CUP PO SCH (21:00)
[2016-12-27] MEDS: LACTATED RINGER'S 1000 ML IV SCH (23:15)
[2016-12-28 00:05] VITALS: BP 121/69; PULSE 87; RESP 20; TEMP 97.7; O2SAT 97
[2016-12-28] MEDS: PCA - TOTAL MG MORPHINE DELIVERED PER SHIFT SCH ×3 (00:19→22:00)
[2016-12-28 08:00] VITALS: BP 123/68; PULSE 74; RESP 18; TEMP 99; O2SAT 99
[2016-12-28] MEDS: DOCUSATE SODIUM 50 MG/SENNA 8.6 MG TAB PO SCH ×2 (09:00→21:00)
[2016-12-28] MEDS: LACTULOSE SYRUP 20 GM/30 ML CUP PO SCH (09:00)
--- NOTE | 2016-12-28 09:06 | PD.ORT.PN ---
Subjective Subjective Remarks Comfortable Objective Vitals Vital Signs Date Time Temp Pulse Resp B/P Pulse Ox O2 Delivery O2 Flow Rate FiO2 12/28/16 08:00 99.0 74 18 123/68 99 12/28/16 00:05 97.7 87 20 121/69 97 12/27/16 20:00 98.7 69 16 121/69 99 12/27/16 16:00 98.5 71 18 114/73 99 12/27/16 12:00 96.1 66 19 132/71 100 12/27/16 09:54 98 21 I/O 12/27/16 12/27/16 12/27/16 12/28/16 12/28/16 12/28/16 07:00 15:00 23:00 07:00 15:00 23:00 Intake Total 360 ml 1440 ml 240 ml Output Total 350 ml 1150 ml Balance 10 ml 290 ml 240 ml Intake Oral 360 ml 1440 ml 240 ml Output Urine Total 350 ml 1150 ml # Bowel Movements 0 Result Diagram: 12/24/16 0625 Imaging Last 24 hours Impressions Multiplanar Reconstruction 12/18/16 1259 Signed Impressions: Service Date/Time: Saturday, December 17, 2016 16:24 - CONCLUSION: 1. Acetabular fracture as above. Javier Bruno MD Lower Extremity CT 12/18/16 1259 Signed Impressions: Service Date/Time: Saturday, December 17, 2016 16:24 - CONCLUSION: 1. Comminuted fracture through the posterior bony margin of the acetabulum as above. Javier Bruno MD Objective Remarks Left lower extremity: No pain with hip or knee range of motion. External fixator in place over ankle. Swelling of +3. Intact sensation distally and is able to move toes. Right lower extremity: dressings clean and dry. intact. +drain. +knee brace. NVI with minimal great toe dorsiflexion Assessment & Plan Assessment and Plan 1) Left tibial Pilon fracture status post external fixation POD 9 2) Right posterior column acetabular fracture s/p ORIF - POD 5 -NWB BLE -no active leg lifts of right leg maintain knee brace right leg at all times daily dressing changes right hip and pin care BID left ankle elevate and ICE ankle. will re-eval next week and plan for surgery thu/. NPO after MN thursday and hold lovenox thursday in prep for potential surgery thursday Dr. Fletcher present during patient assessment Samuel Fletcher MD Dec 28, 2016 09:06
[2016-12-28] MEDS: LACTATED RINGER'S 1000 ML INJ 1,000 ML IV SCH ×2 (09:36→18:45)
[2016-12-28] MEDS: ACETAMINOPHEN/HYDROcodone 325 MG/10 MG TAB PO PRN ×3 (10:00→22:36)
[2016-12-28] MEDS: INDOMETHACIN 75 MG CONTROLLED RELEASE CAP PO SCH (10:00)
[2016-12-28] MEDS: SODIUM CHLORIDE 0.9% FLUSH 5 ML FLUSH IVF SCH ×2 (10:04→22:07)
[2016-12-28 12:00] VITALS: BP 115/69; PULSE 69; RESP 18; TEMP 97.8; O2SAT 99
[2016-12-28 16:00] VITALS: BP 126/74; PULSE 69; RESP 18; TEMP 98.2; O2SAT 100
[2016-12-28] MEDS: PANTOPRAZOLE SOD 40 MG DELAYED RELEASE TAB PO SCH (17:30)
[2016-12-28 20:00] VITALS: BP 117/74; PULSE 72; RESP 16; TEMP 98; O2SAT 97
[2016-12-28] MEDS: MAGNESIUM HYDROXIDE SUSP 30 ML CUP PO SCH (21:00)
[2016-12-28] MEDS: LACTATED RINGER'S 1000 ML IV SCH (23:15)
[2016-12-29] VITALS: BP 124/73; PULSE 61; RESP 17; TEMP 97.8; O2SAT 98
[2016-12-29] MEDS: LACTATED RINGER'S 1000 ML INJ 1,000 ML IV SCH ×2 (05:36→15:36)
[2016-12-29] MEDS: PCA - TOTAL MG MORPHINE DELIVERED PER SHIFT SCH ×3 (06:00→21:36)
--- NOTE | 2016-12-29 06:47 | PD.ORT.PN ---
Subjective Subjective Remarks Pain controlled, examined in bed. guards bedside Objective Vitals Vital Signs Date Time Temp Pulse Resp B/P Pulse Ox O2 Delivery O2 Flow Rate FiO2 12/29/16 00:00 97.8 61 17 124/73 98 12/28/16 20:00 98.0 72 16 117/74 97 12/28/16 16:00 98.2 69 18 126/74 100 12/28/16 12:00 97.8 69 18 115/69 99 12/28/16 08:00 99.0 74 18 123/68 99 I/O 12/28/16 12/28/16 12/28/16 12/29/16 12/29/16 12/29/16 07:00 15:00 23:00 07:00 15:00 23:00 Intake Total 240 ml 1080 ml 0 ml Output Total 600 ml 250 ml Balance 240 ml 480 ml -250 ml Intake Oral 240 ml 1080 ml 0 ml Output Urine Total 600 ml 250 ml # Voids 1 # Bowel Movements 1 0 Imaging Last 24 hours Impressions Multiplanar Reconstruction 12/18/16 1259 Signed Impressions: Service Date/Time: Saturday, December 17, 2016 16:24 - CONCLUSION: 1. Acetabular fracture as above. Javier Bruno MD Lower Extremity CT 12/18/16 1259 Signed Impressions: Service Date/Time: Saturday, December 17, 2016 16:24 - CONCLUSION: 1. Comminuted fracture through the posterior bony margin of the acetabulum as above. Javier Bruno MD Objective Remarks Left lower extremity: No pain with hip or knee range of motion. External fixator in place over ankle. Swelling of +2. Intact sensation distally and is able to move toes. Right lower extremity: dressings clean and dry. intact. +knee brace. Strong dorsiflexion and plantar flexion of foot Assessment & Plan Assessment and Plan 1) Left tibial Pilon fracture status post external fixation POD 10 2) Right posterior column acetabular fracture s/p ORIF - POD 6 -NWB BLE -no active leg lifts of right leg Knee immobilizer in place, physical therapy for passive range of motion knee daily dressing changes right hip and pin care BID left ankle elevate and ICE ankle. Nothing by mouth after midnight Hold Lovenox Plan for surgery tomorrow reduction internal fixation of left tibial pilon fracture Sign consents CRISTINA HASSAN PA-C Dec 29, 2016 06:46
[2016-12-29 08:00] VITALS: BP 118/73; PULSE 71; RESP 18; TEMP 98.5; O2SAT 99
[2016-12-29] MEDS: SODIUM CHLORIDE 0.9% FLUSH 5 ML FLUSH IVF SCH ×2 (09:00→21:36)
[2016-12-29] MEDS: DOCUSATE SODIUM 50 MG/SENNA 8.6 MG TAB PO SCH ×2 (09:00→21:36)
[2016-12-29] MEDS: LACTULOSE SYRUP 20 GM/30 ML CUP PO SCH (09:00)
[2016-12-29] MEDS: INDOMETHACIN 75 MG CONTROLLED RELEASE CAP PO SCH (09:00)
[2016-12-29] MEDS: ACETAMINOPHEN/HYDROcodone 325 MG/10 MG TAB PO PRN ×3 (09:31→23:30)
[2016-12-29 12:00] VITALS: BP 121/80; PULSE 79; RESP 18; TEMP 97; O2SAT 100
[2016-12-29 16:00] VITALS: BP 120/73; PULSE 80; RESP 18; TEMP 99.2; O2SAT 95
[2016-12-29] MEDS: PANTOPRAZOLE SOD 40 MG DELAYED RELEASE TAB PO SCH (18:33)
[2016-12-29 20:00] VITALS: BP 131/68; PULSE 76; RESP 16; TEMP 98.4; O2SAT 100
[2016-12-29] MEDS: MAGNESIUM HYDROXIDE SUSP 30 ML CUP PO SCH (21:36)
[2016-12-29] MEDS: LACTATED RINGER'S 1000 ML IV SCH (21:37)
[2016-12-30] VITALS: BP 118/72; PULSE 69; RESP 17; TEMP 97.5; O2SAT 98
[2016-12-30] MEDS: LACTATED RINGER'S 1000 ML INJ 1,000 ML IV SCH ×3 (00:29→18:00)
[2016-12-30] MEDS: PCA - TOTAL MG MORPHINE DELIVERED PER SHIFT SCH ×3 (00:29→21:50)
[2016-12-30] MEDS: SODIUM CHLORID 0.9% 500 ML IV SCH ×2 (02:15→18:55)
[2016-12-30] MEDS ORDERED: LACTATED RINGER'S 1000 ML IV SCH (02:15)
[2016-12-30] MEDS ORDERED: INSULIN HUMAN REGULAR 1,000 UNITS/10 ML VIAL SQ PRN (02:15)
--- NOTE | 2016-12-30 06:34 | PD.ORT.PN ---
Subjective Subjective Remarks POD 7 s/p ORIF right acetabulum s/p exfix left tibial pilon fx reports pain in right hip. resting comfortably otherwise Objective Vitals Vital Signs Date Time Temp Pulse Resp B/P Pulse Ox O2 Delivery O2 Flow Rate FiO2 12/30/16 00:00 97.5 69 17 118/72 98 12/29/16 20:00 98.4 76 16 131/68 100 12/29/16 16:00 99.2 80 18 120/73 95 12/29/16 12:00 97.0 79 18 121/80 100 12/29/16 08:00 98.5 71 18 118/73 99 I/O 12/29/16 12/29/16 12/29/16 12/30/16 12/30/16 12/30/16 07:00 15:00 23:00 07:00 15:00 23:00 Intake Total 0 ml 960 ml 240 ml Output Total 250 ml Balance -250 ml 960 ml 240 ml Intake Oral 0 ml 960 ml 240 ml Output Urine Total 250 ml # Voids 3 2 # Bowel Movements 0 0 0 Imaging Last 24 hours Impressions Multiplanar Reconstruction 12/18/16 1259 Signed Impressions: Service Date/Time: Saturday, December 17, 2016 16:24 - CONCLUSION: 1. Acetabular fracture as above. Javier Bruno MD Lower Extremity CT 12/18/16 1259 Signed Impressions: Service Date/Time: Saturday, December 17, 2016 16:24 - CONCLUSION: 1. Comminuted fracture through the posterior bony margin of the acetabulum as above. Javier Bruno MD Objective Remarks Left lower extremity: No pain with hip or knee range of motion. External fixator in place over ankle. Swelling of +2. Intact sensation distally and is able to move toes. Right lower extremity: dressings clean and dry. intact. +knee brace. Strong dorsiflexion and plantar flexion of foot Assessment & Plan Assessment and Plan 1) Left tibial Pilon fracture status post external fixation POD 11 2) Right posterior column acetabular fracture s/p ORIF - POD 7 -surgery today Praveen Esparza Dec 30, 2016 06:34
[2016-12-30 08:00] VITALS: BP 135/76; PULSE 84; RESP 16; TEMP 98; O2SAT 100
[2016-12-30] MEDS: SODIUM CHLORIDE 0.9% FLUSH 5 ML FLUSH IVF SCH ×2 (09:00→21:44)
[2016-12-30] MEDS: DOCUSATE SODIUM 50 MG/SENNA 8.6 MG TAB PO SCH ×2 (09:00→21:49)
[2016-12-30] MEDS: LACTULOSE SYRUP 20 GM/30 ML CUP PO SCH (09:00)
[2016-12-30] MEDS: INDOMETHACIN 75 MG CONTROLLED RELEASE CAP PO SCH (09:00)
[2016-12-30] MEDS ORDERED: GENTAMICIN SULFATE 80 MG/2 ML VIAL ONE (11:06)
[2016-12-30] MEDS ORDERED: VANCOMYCIN HCL 1000 MG VIAL ONE (11:14)
[2016-12-30] MEDS ORDERED: ceFAZolin 2 GM PREMIX 50 ML ONE (11:14)
[2016-12-30 12:00] VITALS: BP 130/74; PULSE 60; RESP 16; TEMP 98.5; O2SAT 100
[2016-12-30] MEDS ORDERED: LACTATED RINGER'S 1,000 ML BAG IV ONE (12:00)
[2016-12-30] MEDS ORDERED: ONDANSETRON HCL 4 MG/2 ML VIAL IV PUSH ONE (12:22)
[2016-12-30] MEDS ORDERED: PROPOFOL 200 MG/20 ML AMP IV ONE (12:22)
[2016-12-30] MEDS ORDERED: KETOROLAC TROMETHAMINE 60 MG/2 ML (IM) VIAL IM ONE (12:22)
[2016-12-30] MEDS ORDERED: NEOSTIGMINE 3 MG/3 ML SYR IV ONE (12:22)
[2016-12-30] MEDS ORDERED: MIDAZOLAM HCL 2 MG/2 ML VIAL ONE (14:21)
[2016-12-30] MEDS ORDERED: fentaNYL CITRATE 250 MCG/5 ML AMP ONE (14:21)
[2016-12-30] MEDS ORDERED: FAMOTIDINE 20 MG/2 ML VIAL ONE (14:21)
[2016-12-30] MEDS ORDERED: HYDROmorphone HCL PF 2 MG/ML VIAL ONE (14:21)
[2016-12-30] MEDS ORDERED: ACETAMINOPHEN 1000 MG/100 ML VIAL IV ONE (14:21)
[2016-12-30] MEDS ORDERED: DEXAMETHASONE SOD PHOS 4 MG/ML VIAL ONE (14:22)
[2016-12-30] MEDS ORDERED: SODIUM CHLOR 0.9% 250 ML INJ 250 ML ONE (15:20)
[2016-12-30] MEDS: PANTOPRAZOLE SOD 40 MG DELAYED RELEASE TAB PO SCH (17:00)
[2016-12-30] MEDS ORDERED: MORPHINE SULFATE 4 MG/ML INJ IV PUSH PRN (17:30)
[2016-12-30] MEDS ORDERED: MISCELLANEOUS PHARMACY INFORMATION XX ONE (17:30)
[2016-12-30] MEDS ORDERED: MORPHINE SULFATE 30 MG/30 ML PCA IV SCH (17:30)
[2016-12-30] MEDS ORDERED: MISCELLANEOUS NURSING INFORMATION XX PRN (17:30)
[2016-12-30] MEDS ORDERED: NALOXONE HCL 0.4 MG/ML AMP IV PRN (17:30)
[2016-12-30] MEDS ORDERED: ONDANSETRON HCL 4 MG/2 ML VIAL IVP PRN (17:30)
[2016-12-30] MEDS ORDERED: SODIUM CHLORIDE 0.9% FLUSH 5 ML FLUSH IVF PRN (17:30)
[2016-12-30] MEDS ORDERED: Post-op Orders (for Pharmacy) MISC XX ONE (17:30)
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
--- NOTE | 2016-12-30 17:34 | RADRPT ---
EXAM DATE/TIME: 12/30/2016 17:04 [facility] COMPARISON: No previous studies available for comparison. INDICATIONS : ORIF left ankle. MEDICAL HISTORY : Non-responsive SURGICAL HISTORY : Non-responsive ENCOUNTER: Subsequent ACUITY: 2 weeks PAIN SCORE: Non-responsive. LOCATION: Left ankle FINDINGS: Two view exam was performed of the left ankle. The patient's had an open reduction internal fixation of the distal tibia fracture with overall good alignment. CONCLUSION: Open reduction internal fixation of a distal tibial fracture. Gerald Vasquez MD on December 30, 2016 at 17:32 Board Certified Radiologist. This report was verified electronically.
[2016-12-30] MEDS ORDERED: *MEPERIDINE 25 MG INJ VIAL PERIprocedural Use ONLY ONE (17:58)
[2016-12-30] MEDS ORDERED: *morphine SULFATE 8 MG/ML PERIprocedure ONLY ONE ×3 (18:02→18:36)
[2016-12-30] MEDS ORDERED: *ONDANSETRON 4 MG VIAL PERIprocedural Use ONLY ONE (18:03)
[2016-12-30 19:20] VITALS: BP 122/72; PULSE 95; RESP 18; TEMP 96.4; O2SAT 97
[2016-12-30] MEDS: ACETAMINOPHEN/HYDROcodone 325 MG/10 MG TAB PO PRN (21:43)
[2016-12-30] MEDS: KETOROLAC TROMETHAMINE 30 MG/ML (IVP) VIAL IVP SCH (21:43)
[2016-12-30] MEDS: ceFAZolin 2 GM PREMIX 50 ML IV SCH (21:43)
[2016-12-30 21:46] VITALS: O2SAT 97
[2016-12-30] MEDS: MAGNESIUM HYDROXIDE SUSP 30 ML CUP PO SCH (21:49)
[2016-12-31] VITALS (7 sets, daily range): BP systolic 95–147; BP diastolic 75–84; PULSE 78–104; RESP 16–21; TEMP 96.7–98.1; O2SAT 96–100
[2016-12-31] MEDS: VANCOMYCIN INJ 1,000 MG in SODIUM CHLOR 0.9% 250 ML INJ 250 ML IV SCH ×2 (02:12→14:23)
[2016-12-31] MEDS: ACETAMINOPHEN/HYDROcodone 325 MG/10 MG TAB PO PRN ×6 (02:12→23:51)
[2016-12-31] MEDS: PCA - TOTAL MG MORPHINE DELIVERED PER SHIFT SCH ×3 (02:35→22:00)
[2016-12-31] MEDS: LACTATED RINGER'S 1000 ML INJ 1,000 ML IV SCH ×3 (02:35→22:35)
[2016-12-31] MEDS: KETOROLAC TROMETHAMINE 30 MG/ML (IVP) VIAL IVP SCH ×3 (05:50→22:35)
[2016-12-31] MEDS: ceFAZolin 2 GM PREMIX 50 ML IV SCH ×3 (05:50→22:35)
--- NOTE | 2016-12-31 06:46 | PD.ORT.PN ---
Subjective Subjective Remarks Pain controlled, examined in bed. guards bedside Objective Vitals Vital Signs Date Time Temp Pulse Resp B/P Pulse Ox O2 Delivery O2 Flow Rate FiO2 12/31/16 04:24 97.8 104 21 134/77 99 12/31/16 00:23 97.1 96 21 147/84 96 12/30/16 21:46 97 21 12/30/16 19:20 96.4 95 18 122/72 97 12/30/16 18:30 100 20 163/89 97 Room Air 12/30/16 18:15 90 20 160/87 97 Room Air 12/30/16 18:00 112 20 162/93 99 12/30/16 17:55 97.8 92 20 179/102 97 Simple Mask 5 12/30/16 12:00 98.5 60 16 130/74 100 12/30/16 08:00 98.0 84 16 135/76 100 I/O 12/30/16 12/30/16 12/30/16 12/31/16 12/31/16 12/31/16 07:00 15:00 23:00 07:00 15:00 23:00 Intake Total 220 ml Output Total 1225 ml 200 ml Balance -1225 ml 20 ml Intake Oral 120 ml IV Total 100 ml Output Urine Total 1225 ml 200 ml Bladder Scan Volume Amount 940 ml # Bowel Movements 0 0 Imaging Last 24 hours Impressions Multiplanar Reconstruction 12/18/16 1259 Signed Impressions: Service Date/Time: Saturday, December 17, 2016 16:24 - CONCLUSION: 1. Acetabular fracture as above. Javier Bruno MD Lower Extremity CT 12/18/16 1259 Signed Impressions: Service Date/Time: Saturday, December 17, 2016 16:24 - CONCLUSION: 1. Comminuted fracture through the posterior bony margin of the acetabulum as above. Javier Bruno MD Objective Remarks Left lower extremity: No pain with hip or knee range of motion. Clean splint intact Intact sensation distally and is able to move toes. Right lower extremity: dressings clean and dry. intact. +knee brace. Strong dorsiflexion and plantar flexion of foot Assessment & Plan Assessment and Plan 1) Left tibial Pilon fracture status post open reduction internal fixation and removal of external fixator POD 1 2) Right posterior column acetabular fracture s/p ORIF - POD 8 Toe-touch weightbearing right lower extremity/nonweightbearing left lower extremity Daily dressing changes right lower extremity/maintain splint Lovenox Discontinue Parker at 11 AM Plan for discharge to corrections facility tomorrow Follow-up appointment with Dr. Javier or TIEN in 2 weeks CRISTINA HASSAN PA-C Dec 31, 2016 06:46
[2016-12-31] MEDS: DOCUSATE SODIUM 50 MG/SENNA 8.6 MG TAB PO SCH ×2 (09:00→20:09)
[2016-12-31] MEDS: SODIUM CHLORIDE 0.9% FLUSH 5 ML FLUSH IVF SCH ×2 (09:00→20:08)
[2016-12-31] MEDS: LACTULOSE SYRUP 20 GM/30 ML CUP PO SCH (09:00)
[2016-12-31] MEDS: INDOMETHACIN 75 MG CONTROLLED RELEASE CAP PO SCH (10:45)
[2016-12-31] MEDS: PANTOPRAZOLE SOD 40 MG DELAYED RELEASE TAB PO SCH (17:31)
[2016-12-31] MEDS: ENOXAPARIN SODIUM 30 MG/0.3 ML SYRINGE SQ SCH (17:31)
[2016-12-31] MEDS: MAGNESIUM HYDROXIDE SUSP 30 ML CUP PO SCH (20:09)
[2017-01-01 00:26] VITALS: BP 115/67; PULSE 69; RESP 18; TEMP 97.7; O2SAT 98
[2017-01-01] MEDS: VANCOMYCIN INJ 1,000 MG in SODIUM CHLOR 0.9% 250 ML INJ 250 ML IV SCH (03:00)
[2017-01-01 04:21] VITALS: BP 138/71; PULSE 81; RESP 18; TEMP 97.6; O2SAT 98
[2017-01-01] MEDS: ENOXAPARIN SODIUM 30 MG/0.3 ML SYRINGE SQ SCH (05:00)
[2017-01-01] MEDS: PCA - TOTAL MG MORPHINE DELIVERED PER SHIFT SCH (06:00)
[2017-01-01] MEDS: KETOROLAC TROMETHAMINE 30 MG/ML (IVP) VIAL IVP SCH (06:00)
[2017-01-01] MEDS: ceFAZolin 2 GM PREMIX 50 ML IV SCH (06:00)
[2017-01-01] MEDS ORDERED: WHEEMIS3 (06:47)
--- NOTE | 2017-01-01 06:49 | PD.ORT.PN ---
Subjective Subjective Remarks Pain controlled, examined in bed. guards bedside Objective Vitals Vital Signs Date Time Temp Pulse Resp B/P Pulse Ox O2 Delivery O2 Flow Rate FiO2 01/01/17 04:21 97.6 81 18 138/71 98 01/01/17 00:26 97.7 69 18 115/67 98 12/31/16 19:30 98.1 80 16 127/75 99 12/31/16 16:15 97.8 78 16 95/77 99 12/31/16 12:34 16 12/31/16 11:34 97.2 86 17 138/77 100 12/31/16 11:22 99 21 12/31/16 08:36 96.7 88 16 121/77 99 I/O 12/31/16 12/31/16 12/31/16 01/01/17 01/01/17 01/01/17 07:00 15:00 23:00 07:00 15:00 23:00 Intake Total 360 ml 240 ml 480 ml Output Total 400 ml 1120 ml 200 ml Balance -40 ml -880 ml 280 ml Intake Oral 360 ml 240 ml 480 ml Output Urine Total 400 ml 1120 ml 200 ml Bladder Scan Volume Amount 940 ml # Bowel Movements 0 Imaging Last 24 hours Impressions Multiplanar Reconstruction 12/18/16 1259 Signed Impressions: Service Date/Time: Saturday, December 17, 2016 16:24 - CONCLUSION: 1. Acetabular fracture as above. Javier Bruno MD Lower Extremity CT 12/18/16 1259 Signed Impressions: Service Date/Time: Saturday, December 17, 2016 16:24 - CONCLUSION: 1. Comminuted fracture through the posterior bony margin of the acetabulum as above. Javier Bruno MD Objective Remarks Left lower extremity: No pain with hip or knee range of motion. Clean splint intact Intact sensation distally and is able to move toes. Right lower extremity: dressings clean and dry. intact. +knee brace. Strong dorsiflexion and plantar flexion of foot Assessment & Plan Assessment and Plan 1) Left tibial Pilon fracture status post open reduction internal fixation and removal of external fixator POD 2 2) Right posterior column acetabular fracture s/p ORIF - POD 9 Toe-touch weightbearing right lower extremity/nonweightbearing left lower extremity Daily dressing changes right lower extremity/maintain splint Lovenox Plan for discharge to corrections facility today Follow-up appointment with Dr. Javier or TIEN in 2 weeks CRISTINA HASSAN PA-C Jan 01, 2017 06:49
[2017-01-01 08:20] VITALS: BP 123/74; PULSE 83; RESP 16; TEMP 97.9; O2SAT 99
[2017-01-01] MEDS: INDOMETHACIN 75 MG CONTROLLED RELEASE CAP PO SCH (08:58)
[2017-01-01] MEDS: LACTULOSE SYRUP 20 GM/30 ML CUP PO SCH (09:00)
[2017-01-01] MEDS: SODIUM CHLORIDE 0.9% FLUSH 5 ML FLUSH IVF SCH (09:00)
[2017-01-01] MEDS: DOCUSATE SODIUM 50 MG/SENNA 8.6 MG TAB PO SCH (09:00)
[2017-01-01] MEDS: LACTATED RINGER'S 1000 ML INJ 1,000 ML IV SCH (09:04)
[2017-01-01 12:20] VITALS: BP 120/79; PULSE 79; RESP 18; TEMP 98.3; O2SAT 96
[2017-01-01] MEDS: ACETAMINOPHEN/HYDROcodone 325 MG/10 MG TAB PO PRN (12:48)
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
== END 2017-01-01 16:12 | DRG 492 ==
LOC: NEPE 16:03 → EDBD 16:39 → NEDA 16:39 → NEDH 22:04 → N06A 12-18 14:11
PROVIDERS: ADMIT Surgery; ATTEND Orthopaedic Surgery Orthopaedic Trauma
PROC: 0QSH35Z Reposition Left Tibia with External Fixation Device, Percutaneous Approach (ICD-10-PCS; principal; 2016-12-18 07:08)
PROC: 0QS404Z Reposition Right Acetabulum with Internal Fixation Device, Open Approach (ICD-10-PCS; 2016-12-23)
PROC: 0QSH04Z Reposition Left Tibia with Internal Fixation Device, Open Approach (ICD-10-PCS; 2016-12-30)
DX: S82.872A Displaced pilon fracture of left tibia, initial encounter for closed fracture (principal); S32.421A Displaced fracture of posterior wall of right acetabulum, initial encounter for closed fracture; S32.029A Unspecified fracture of second lumbar vertebra, initial encounter for closed fracture; S32.039A Unspecified fracture of third lumbar vertebra, initial encounter for closed fracture; S32.049A Unspecified fracture of fourth lumbar vertebra, initial encounter for closed fracture; S92.152A Displaced avulsion fracture (chip fracture) of left talus, initial encounter for closed fracture; W13.4XXA Fall from, out of or through window, initial encounter; Y93.02 Activity, running
CPT/HCPCS: 36430; 70450; 71010; 71260; 72125; 72170; 73503; 73590; 73600; 73700; 74177; 76000; 76377; 80053; 82435; 82565; 82947; 83735; 84132; 84295; 84520; 85014; 85018; 85025; 85027; 85610; 85730; 86850; 86900; 86901; 86920; 94150; 96374; 96375; 99291; C1713; G0390; J0131; J0690; J1100; J1170; J1200; J1580; J1644; J1650; J1885; J2060; J2175; J2250; J2270; J2405; J2550; J2710; J3010; J3370; J7050; J7120; P9016; Q9967

== ENCOUNTER 2017-01-23 15:38 | Emergency (ER) | payer SELFPAY ==
[~2017-01-23] VITALS: Ht 188 cm; Wt 80.0 kg
[~2017-01-23 15:38] MED LIST: WHEEMIS3
[2017-01-23 15:40] VITALS: BP 131/66; PULSE 88; RESP 16; TEMP 98.1; O2SAT 98
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
--- NOTE | 2017-01-23 17:54 | RADRPT ---
EXAM DATE/TIME: 01/23/2017 17:41 [facility] COMPARISON: HIP RIGHT (MIN 4VWS) WO AP PELVIS, December 23, 2016, 9:21. INDICATIONS : Right hip pain from pelvis surgery on 12-23-16 MEDICAL HISTORY : Mildly comminuted fracture of the right acetabulum. SURGICAL HISTORY : Right acetabulum. ENCOUNTER: Initial ACUITY: 1 day PAIN SCORE: 8/10 LOCATION: Right Hip. FINDINGS: There has been acetabular reconstruction with malleable plates and multiple screws. The hardware appe ars intact. Alignment is anatomic. There is no evidence of fracture, dislocation or bony destruction. The remainder the pelvis and the contralateral left hip are intact and unremarkable. CONCLUSION: Satisfactory appearance post previous hardware reconstruction of the right acetabulum. Nolan Aguilera MD on January 23, 2017 at 17:51 Board Certified Radiologist. This report was verified electronically.
[2017-01-23] MEDS ORDERED: IBUP800T23 PO (18:11)
== END 2017-01-23 18:45 | disposition home or self-care (01) ==
LOC: NETRI 15:38
DX: M25.551 Pain in right hip (principal); R60.0 Localized edema; Z79.01 Long term (current) use of anticoagulants; Z98.890 Other specified postprocedural states
CPT/HCPCS: 73502; 99283; E0113